=== PATIENT | male | born 1995 | race Caucasian/White ===

== ENCOUNTER → 2019-05-05 11:13 | Outpatient (CLI) | payer OTHER, SELFPAY ==
[2017-06-06 23:46] VITALS: BMI 24.1
[2019-05-05 12:16] LABS: Absolute Neutrophil Count 2.3 X10^3/uL (2.0-7.7); Basophil# 0.02 X10^3/uL; Basophil% 0.3 % (0-1); Eosinophil# 0.11 X10^3/uL; Eosinophils% 1.9 % (0-5); Hematocrit 44.8 % (40-54); Hemoglobin 15.4 g/dl (13.0-16.5); Lymphocyte % 50.3 % (19-41); Mean Corp Hgb Conc 34.4 g/gl (32-36); Mean Corpuscular Hgb 30.6 pg (27.0-32.0); Mean Corpuscular Volume 89.1 fL (80-94); Mean Platelet Vol. 9.9 fl (6.2-12.0); Monocyte# 0.41 X10^3/uL; Monocyte% 7.1 % (0-10); Neutrophil # 2.32 X10^3/uL (2.7-7.7); Neutrophil % 40.4 % (47-70); Platelet Count 288 K/mm3 (150-450); RBC Distribution Width CV 13.1 % (11.6-14.6); RBC Distribution Width SD 42.3 fl (35.1-43.9); Red Blood Count 5.03 M/mm3 (4.6-6.2); White Blood Count 5.8 K/mm3 (4.4-11.0)
[2019-05-05 12:17] LABS: POSITIVE COUNT NO; POSITIVE DIFFERENTIAL NO; POSITIVE MORPHOLOGY NO
[2019-05-05 12:47] LABS: Thyroid Stim Hormone (TSH) 1.17 uIU/mL (0.358-3.74)
[2019-05-05 13:03] LABS: Hepatitis B Surface Antigen Non-Reactive (Nonreactive)
[2019-05-05 15:00] LABS: Chlamydia Trachomatis by PCR Negative (Negative); Neisserai gonorrhoeae by PCR Negative (Negative); Probe Check PASS; Sample Adequacy Control PASS; Specimen Processing Control PASS
[2019-05-06 01:18] LABS: Rapid Plasmin Reagin (RPR) NONREACTIVE (NONREACTIVE)
[2019-05-06 07:34] LABS: HIV - WCH Non-Reactive (Nonreactive)
[2019-05-08 11:35] LABS: Hepatitis C Antibody Non-Reactive (Nonreactive)
== END ==
PROVIDERS: Family Provider Family Medicine; PCP Family Medicine; Referring Provider Family Medicine; Visit Provider Family Medicine
DX: F41.9 Anxiety disorder, unspecified (principal); Z11.3 Encounter for screening for infections with a predominantly sexual mode of transmission; D72.819 Decreased white blood cell count, unspecified
CPT/HCPCS: 36415; 84443; 85025; 86592; 86703; 86803; 87340; 87491; 87591

== ENCOUNTER → 2019-07-06 09:25 | Outpatient (CLI) | payer OTHER, SELFPAY ==
--- NOTE | 2019-07-06 09:35 | US_ITS ---
STUDY: SCROTUM ULTRASOUND REASON FOR EXAM: Male, 23 years old. Right-sided testicular pain and lump TECHNIQUE: Ultrasound evaluation of the scrotum was performed with color Doppler and static michael-scale imaging. COMPARISON: October 11, 2014 FINDINGS: RIGHT TESTICLE INTRATESTICULAR: There is a normal size of the right testicle. The right testicle measures 4.3 x 3 x 2 cm cm. There is a homogenous echotexture. There is normal arterial and normal venous vascularity. There is no demonstrated right testicular mass or cyst. EXTRATESTICULAR: The epididymis is normal in size. The epididymis head measures 0.9 x 1.3 x 0.8 cm. There is normal vascularity of the epididymis. 0.7 x 0.7 x 0.6 cm right epididymal cyst. There is no demonstrated hydrocele. There is no demonstrated varicocele. There is no demonstrated extratesticular mass or cyst. LEFT TESTICLE INTRATESTICULAR: There is a normal size of the left testicle. The left testicle measures 4.5 x 2.7 x 2.3 cm. There is a homogenous echotexture. There is normal arterial and normal venous vascularity. There is no demonstrated left testicular mass or cyst. EXTRATESTICULAR: The epididymis is normal in size. The epididymis head measures 0.9 x 1.2 x 0.9 cm. There is normal vascularity of the epididymis. There is no demonstrated epididymal cystic structure. There is no demonstrated hydrocele. There is no demonstrated varicocele. There is no demonstrated extratesticular mass or cyst. US/Testicular with Arterial Flow IMPRESSION: Normal bilateral testicles. Electronically Signed: Hubert John MD at 22:34 EDT , Service support ,
== END ==
PROVIDERS: Family Provider Family Medicine; PCP Family Medicine; Referring Provider Family Medicine; Visit Provider Family Medicine
DX: N50.819 Testicular pain, unspecified (principal)
CPT/HCPCS: 76870; 93976

== ENCOUNTER 2019-12-20 11:27 | Emergency (ER) | payer OTHER, SELFPAY ==
[2019-12-20 11:29] VITALS: BP 117/56; PULSE 67; RESP 18; TEMP 36.4; O2SAT 100; BMI 18.2
--- NOTE | 2019-12-20 12:10 | EKG12_ITS ---
Test Reason : ILLNESS Blood Pressure : / mmHG Vent. Rate : 058 BPM Atrial Rate : 058 BPM P-R Int : 140 ms QRS Dur : 098 ms QT Int : 378 ms P-R-T Axes : 044 057 045 degrees QTc Int : 371 ms Sinus bradycardia with sinus arrhythmia Otherwise normal ECG Confirmed by HODAN ARIAS ([id number]), content editor NOE OJEDA ([id number]) on 12/22/2019 3:18:43 PM Referred By: GERALDO Confirmed By:HODAN ARIAS
--- NOTE | 2019-12-20 12:10 | CT_ITS ---
STUDY: CT BRAIN WITHOUT CONTRAST REASON FOR EXAM: Male, 24 years old. UNRESPONSIVE EPISODES, SYNCOPE, HX-PTSD, SUBDURAL HEMATOMA RADIATION DOSAGE (If Supplied By Facility): CTDIvol = ( 44.99 ) mGy, DLP = ( 728.62 ) mGycm TECHNIQUE: Transaxial CT imaging of the brain was performed without administration of intravenous contrast material. Individualized dose optimization techniques were used for this CT. COMPARISON: No relevant priors. FINDINGS: Normal soft tissue structures. Normal calvarium. Normal size ventricles and extra-axial spaces for the patient''s age. Normal white matter tracts of the cerebral hemispheres. Normal basal ganglia and thalami. Normal brainstem. Normal cerebellum. There is no intracranial hemorrhage. There are no findings of an acute ischemic infarction. Focal mucosal thickening along the posterior aspect of the left maxillary sinus. CT/Brain/Head without Contrast IMPRESSION: Normal unenhanced CT scan of the brain. Electronically Signed: Omega Chavez, at 13:04 EST , Service support ,
--- NOTE | 2019-12-20 12:12 | RAD_ITS ---
STUDY: X-RAY CHEST REASON FOR EXAM: Male, 24 years old. RAPID HR, -- SYNCOPAL EPISODE TODAY AND A COUPLE IN THE PAST TECHNIQUE: PA and lateral views of the chest. COMPARISON: Comparison is made with prior examination dated October 28, 2016. FINDINGS: EKG electrodes are seen. The lungs are clear and expanded. Scattered calcified granulomas. There is no demonstrated pleural abnormality. Normal size heart. Normal mediastinum and eduar. Normal visualized pulmonary arteries. Normal visualized aortic arch and descending thoracic aorta. Normal visualized thoracic spine. Normal visualized ribs, clavicles, and shoulders. There is no demonstrated abnormality of the visualized soft tissue structures of the upper abdomen. RAD/Chest PA and Lateral IMPRESSION: Normal x-ray examination of the chest. Electronically Signed: Omega Chavez, at 13:09 EST , Service support ,
--- NOTE | 2019-12-20 12:21 | ED.VIS.GEN ---
History of Present Illness Chief Complaint: Syncope Narrative: Patient presents emergency department with unresponsive episodes. Patient states that these episodes have occurred in the past particular about 2-1/2 years ago when he was diagnosed with PTSD. He states that up until Thursday he had not had them again. He reports that he feels like he is going to go into them and he will go to his knees. He states that he believes he sees pictures and imagery but cannot recall what he seen. He does not lose control of his bowel or bladder. Sometimes he wakes with a headache and sometimes feels fatigued. He has had 2 new jobs in the past couple months. He states he is not currently seeing a counselor. He has a history of subdural hematoma after falling out of a tree when he was 11 as well as several other head injuries since then. He did not require any craniotomy for the subdural. He has never seen a neurologist for this. Past Medical History - Allergies and Home Meds Allergies/Adverse Reactions: Allergies No Known Allergies Allergy (Verified 12/20/19 11:28) Primary Care Physician: Dharmesh Vasquez MD [Primary Care Provider] - Smoking Status: Current every day smoker Review of Systems General: Denies: Chills, Fever, Sweats Eyes: Denies: Visual changes - bilaterally, Diplopia ENT: Denies: Rhinorrhea, Sore throat Cardiovascular: Denies: Chest pain, Palpitations Respiratory: Denies: Dyspnea, Cough, Dyspnea on exertion Gastrointestinal: Denies: Abdominal pain, Nausea, Vomiting, Diarrhea, Melena, Hematochezia Genitourinary: Denies: Dysuria, Hematuria, Frequency Musculoskeletal: Denies: Back pain, Extremity Pain Skin: Denies: Rash, Wounds Neurological: Reports: Headache, - - unreponsive episodes. Denies: Weakness, Numbness Psych: Reports: Anxiety Physical Exam Vital Signs/Narrative: Vital Signs Temp Pulse Resp BP Pulse Ox 12/20/19 11:29 97.5 F L 67 18 117/56 L 100 Inital Vital Signs reviewed: Yes General: Well nourished, Well developed, No Acute Distress Head: Normocephalic, Atraumatic Eyes: Perrl, EOMI ENT: Moist mucous membranes, No rhinorrhea Neck: Supple, Nontender Cardiovascular: Regular rate, Regular rhythm, No murmurs Respiratory: No distress, CTA bilaterally, Chest nontender Abdomen: Soft, Nontender, Nondistended, Normal bowel sounds Back: Nontender, Normal Inspection Extremities: Nontender, No edema Skin: Normal color, No rash Neurological: Alert, Oriented x3, Cranial nerves II-XII grossly intact, Normal Strength, Normal Sensation Psychological: Normal affect, Normal Mood Diagnostic/Tx/Re-eval - Medical Decision Making Basic labs were normal. EKG sinus bradycardia. Chest x-ray normal sternal silhouette. CT the brain negative. Has had no events on the monitor. This could be absence seizure by think is most likely to be psychological in nature. However I would recommend a follow-up with neurology as well as psychiatry. ED Disposition - Plan for ED Patient: Disposition: Home or Assisted Living Diagnosis: Unresponsive episode Referrals: Dharmesh Vasquez MD [Primary Care Provider] - As soon as possible Counseling,Center [GROUP OF PHYSICIANS] - As soon as possible Additional Instructions: Recommend you follow-up with both the counseling center your PCP and neurology. [facility] ([place]you can call for an appointment [phone]
[2019-12-20 13:00] LABS: Absolute Lymphocyte Count 1.47 X10^3/uL (0.83-4.51); Absolute Neutrophil Count 3.9 X10^3/uL (2.0-7.7); Basophil# 0.03 X10^3/uL; Basophil% 0.5 % (0-1); Eosinophil# 0.09 X10^3/uL; Eosinophils% 1.6 % (0-5); Hematocrit 42.7 % (40-54); Hemoglobin 14.8 g/dL (13.0-16.5); Lymphocyte # 1.47 X10^3/ul (4.0); Lymphocyte % 25.6 % (19-41); Mean Corp Hgb Conc 34.7 g/dL (32-36); Mean Corpuscular Hgb 31.7 pg (27.0-32.0); Mean Corpuscular Volume 91.4 fL (80-94); Mean Platelet Vol. 10.1 fl (6.2-12.0); Monocyte# 0.26 X10^3/uL; Monocyte% 4.5 % (0-10); NRBC Flagged by Analyzer 0 % (0-5); Neutrophil # 3.88 X10^3/uL (2.7-7.7); Neutrophil % 67.6 % (47-70); Platelet Count 271 K/mm3 (150-450); RBC Distribution Width SD 39.9 fl (35.1-43.9); Red Blood Count 4.67 M/mm3 (4.6-6.2); White Blood Count 5.7 K/mm3 (4.4-11.0)
[2019-12-20 13:18] LABS: ALB/GLOB Ratio 1.5 RATIO (0.9-2.4); AST(SGOT) 19 U/L (15-37); Alanine Aminotransfer ALT/SGPT 25 U/L (16-61); Albumin, Serum 4.2 g/dL (3.2-5.0); Alkaline Phosphatase 88 U/L (45-117); Anion Gap 4 (5-15); BUN 8 mg/dL (7-18); BUN/Creat Ratio 11.3 RATIO (10-20); Calcium,Total 9.4 mg/dL (8.5-10.1); Chloride 108 mmol/L (98-107); Creatinine, Serum 0.71 mg/dL (0.70-1.30); EST Glomerular Filtration Rate 148 mL/min (>60); Est Glom Filt Rate - Afr Amer 179 mL/min (>60); Estimated Creatinine Clearance 125.64 ml/min; Globulin 2.8 g/dL (2.2-4.2); Glucose 94 mg/dL (74-106); Potassium 3.8 mmol/L (3.5-5.1); Sodium Level 141 mmol/L (136-145)
[2019-12-20 13:29] VITALS: BP 98/49; PULSE 56; RESP 15; O2SAT 98
[2019-12-20 13:45] LABS: Mucous, Urine 0 SEEN /hpf (<or=2+); Red Blood Cells-Urine 0 SEEN /hpf (0-5); Squamous Epithelial Cells - UA 0 SEEN /hpf (0-5); White Blood Cells 0 SEEN /hpf (0-5)
[2019-12-20 13:50] LABS: Color, Urine Yellow (Yellow); Glucose, Dipstick Normal (Normal); Ketone-Dipstick Negative (Negative); Leukocyte Esterase-Dipstick Negative /ul (Negative); Nitrite-Dipstick Negative (Negative); Occult Blood-Urine Negative /ul (Negative); Protein-Dipstick Negative (Negative); Urine Bilirubin Dipstick Negative (Negative); Urine Clarity Cloudy (Clear); Urine Urobilinogen Normal (Normal)
[2019-12-20 14:02] LABS: Bacteria 1+ /hpf (None Seen)
[2019-12-20 14:03] LABS: Amorphous Sediment 4+
[2019-12-20 14:19] LABS: Amphetamine Urine VISTA NEGATIVE (<1000 ng/mL); Barbiturate Urine VISTA NEGATIVE (< 200 ng/mL); Benzodiazepine Urine VISTA NEGATIVE (< 200 ng/mL); Cocaine Urine VISTA NEGATIVE (< 300 ng/mL); Ecstacy Urine VISTA NEGATIVE (< 500 ng/mL); Methadone Urine VISTA NEGATIVE (< 300 ng/mL); PCP Urine VISTA NEGATIVE (< 25 ng/mL); THC Urine VISTA POSITIVE (< 50 ng/mL); Vista UDS pH Range 8
[2019-12-20 14:40] VITALS: BP 91/57; PULSE 57; RESP 16; O2SAT 98
== END 2019-12-20 14:41 | disposition home or self-care (01) ==
PROVIDERS: Emergency Provider Emergency Medicine; PCP Family Medicine
DX: R55 Syncope and collapse (principal); F17.200 Nicotine dependence, unspecified, uncomplicated; F43.10 Post-traumatic stress disorder, unspecified; Z79.899 Other long term (current) drug therapy
CPT/HCPCS: 70450; 71046; 80053; 80307; 81001; 85025; 93005; 99283; A4216

== ENCOUNTER → 2020-01-06 | Outpatient (CLI) | payer OTHER, SELFPAY ==
[2019-12-20 11:29] VITALS: BMI 18.2
== END | disposition home or self-care (01) ==
LOC: PSN 07:01
PROVIDERS: PCP Family Medicine; Referring Provider Family Medicine; Visit Provider Family Medicine
DX: R41.89 Other symptoms and signs involving cognitive functions and awareness (principal)
CPT/HCPCS: 95819

== ENCOUNTER 2024-01-26 17:42 | Inpatient (IN) | payer SELFPAY ==
[2024-01-26 17:43] VITALS: BP 128/86; PULSE 113; RESP 20; TEMP 36.2; O2SAT 97; BMI 25.2
--- NOTE | 2024-01-26 19:18 | CT_ITS ---
STUDY: CT ABDOMEN AND PELVIS WITHOUT CONTRAST REASON FOR EXAM: Male, 28 years old. Right lower quadrant abdominal pain RADIATION DOSAGE (If Supplied By Facility): CTDIvol = ( 8.42 ) mGy, DLP = ( 361.81 ) mGycm TECHNIQUE: Transaxial images were obtained from the dome of the diaphragm to the symphysis pubis without oral contrast, and without intravenous contrast. Sagittal and coronal images were reconstructed. Individualized dose optimization techniques were used for this CT. COMPARISON: August 04, 2013 FINDINGS: The visualized lung bases are unremarkable. The visualized portions of the heart are within normal limits. Normal liver. Normal gallbladder and extrahepatic biliary system. Normal spleen. Normal pancreas. Normal bilateral adrenal glands. Normal right kidney. Normal left kidney. Normal visualized stomach. There is thickening of the wall of the terminal ileum which may be consistent with nonspecific ileitis. Cannot exclude mild changes of Crohn''s disease.. Normal colon. The appendix is visualized and appears normal. Normal abdominal aorta. Normal inferior vena cava. Normal retroperitoneum. Normal urinary bladder. Normal abdominal wall. Normal osseous structures. CT/Abdomen/Pelvis WITH Contrast IMPRESSION: Findings which may be consistent with nonspecific ileitis. No evidence for small bowel obstruction or acute appendicitis. Electronically Signed: Jameson Hager MD at 22:03 EDT ,
[2024-01-26] MEDS: Morphine 4 MG/ML Syringe IV (19:25)
[2024-01-26] MEDS: Ondansetron 4 MG/2 ML Vial IV (19:25)
[2024-01-26] MEDS: 0.9% Normal Saline (1000mL) 1,000 ML 1000 ML IV (19:25)
[2024-01-26 19:39] LABS: Absolute Neutrophil Count 15.7 X10^3/uL (2.0-7.7); Basophil# 0.05 X10^3/uL; Basophil% 0.3 % (0-1); Hematocrit 48.6 % (40-54); Hemoglobin 16.5 g/dL (13.0-16.5); Lymphocyte % 5.2 % (19-41); Mean Corpuscular Hgb 30.7 pg (27.0-32.0); Mean Corpuscular Volume 90.5 fL (80-94); Mean Platelet Vol. 10.5 fl (6.2-12.0); Monocyte% 3.5 % (0-10); NRBC Flagged by Analyzer 0 % (0-5); Neutrophil # 15.68 X10^3/uL (2.7-7.7); Neutrophil % 90.1 % (47-70); Platelet Count 338 K/mm3 (150-450); RBC Distribution Width CV 12.2 % (11.6-14.6); Red Blood Count 5.37 M/mm3 (4.6-6.2); White Blood Count 17.4 K/mm3 (4.4-11.0)
[2024-01-26 19:42] VITALS: BP 117/64; PULSE 104; RESP 16; O2SAT 100
[2024-01-26 20:00] LABS: Anion Gap 10 (5-15); BUN 13 mg/dL (7-18); BUN/Creat Ratio 12.3 RATIO (10-20); Chloride 104 mmol/L (98-107); Creatinine, Serum 1.06 mg/dL (0.70-1.30); EST Glomerular Filtration Rate 90 mL/min (>60); Est Glom Filt Rate - Afr Amer 109 mL/min (>60); Estimated Creatinine Clearance 91.86 ml/min; Glucose 102 mg/dL (74-106); Sodium Level 138 mmol/L (136-145)
--- NOTE | 2024-01-26 20:28 | ED.VIS.GI ---
HPI HPI - GI History of Present Illness Chief Complaint: Abd Pain Detail of Chief Complaint: Abdominal pain with nausea and vomiting Informant: patient Abdominal Pain/Flank Pain Onset: Yesterday Context: Sudden Onset Timing: Continuous and Waxes and wanes Quality: Aching and Cramping Location: RUQ and RLQ Current Severity: Moderate Maximum Severity: Severe Worsened by: Car ride and Movement Relieved by: Nothing Nausea/Vomiting/Emesis GI Symptom: Positive for Nausea and Vomiting (Between 5-10 times) Onset: Today Quality: Negative for Nonbilious, Blood streaks, Coffee ground or Hematemesis Severity: Moderate Diarrhea/Melena/Hematochezia GI Symptom: Negative for Diarrhea, Melena or Hematochezia Associated Symptoms Associated Symptoms: Negative for Dysuria, Frequency, Hematuria or Urgency Narrative Narrative: Patient is a 28-year-old male who presents with abdominal pain that was initially upper quadrant now lower quadrant on the right side with nausea and vomiting. He denies fever or chills. He denies cardiac respiratory symptoms. He denies dysuria, frequency, urgency or hematuria. He has no history of renal or ureteral calculi. Movement causes him increased pain. Walking causes him pain. There was a delay in ordering his workup because of acuity in the department that required my immediate attention and bedside care. Prior similar symptoms: No Recent Illness/Hospitalization: No PFSH PFSH Medical History PTSD (post-traumatic stress disorder) Seizures Home Medications vortioxetine 20 mg tablet 20 mg PO DAILY 12/20/19 [History Last Taken Unknown] doxycycline hyclate 100 mg capsule 200 mg PO BID 01/26/24 [History Last Taken Unknown] Allergy/AdvReac Type Severity Reaction Status Date / Time No Known Allergies Allergy Verified 01/26/24 17:45 Social History (Updated 01/26/24 @ 20:[address] Branden Esparza MD) household members: significant other Smoking Status: Former smoker ROS ROS ED Constitutional Constitutional ED: Reports fever(s), subjective and sweats; Denies chills ENT ENT ED: Denies ear pain, rhinorrhea or sore throat Cardiovascular Cardiovascular: Denies chest pain, orthopnea, palpitations, paroxysmal nocturnal dyspnea or racing heartbeat Respiratory/Chest Respiratory/Chest: Denies cough, dyspnea, dyspnea on exertion, orthopnea or paroxysmal nocturnal dyspnea Gastrointestinal Gastrointestinal: Reports abdominal pain, nausea and vomiting; Denies constipation, diarrhea or melena Genitourinary Genitourinary ED: Denies dysuria, hematuria or urinary frequency Musculoskeletal Musculoskeletal: Denies arthralgias, back pain or neck pain Integumentary Denies rash Neurologic Neurologic: Denies headache(s), paresthesias or weakness Psychiatric Psychiatric: Reports anxiety Endocrine Endocrinology: Denies polydipsia, polyphagia or polyuria Hematologic/Lymphatic Hematologic/Lymphatic: Denies easy bleeding or easy bruising EXAM Physical Exam Const Vital Signs: 01/26/24 17:43 01/26/24 19:42 01/26/24 20:59 Temperature 97.2 F L Temperature Source Temporal Pulse Rate 113 H 104 H 109 H Respiratory Rate 20 H 16 20 H Blood Pressure 128/86 H 117/64 136/80 H Blood Pressure Mean 100 81 98 Pulse Ox 97 100 100 Oxygen Delivery Method Room Air Room Air Room Air Positive well nourished and well developed; Negative for obese Constitutional Narrative: Patient appears uncomfortable and ill in appearance. General Appearance ED: well developed; Negative for pallor Nutritional Appearance: Negative for obese HEENT Reports TM's clear and dry mucous membranes normocephalic and atraumatic Tympanic Membrane ED: Yes TM's clear Mouth ED: Yes dry mucous membranes Mouth: dry mucous membranes Eyes PERRL and EOMs intact bilaterally General Eye ED: Negative for pale conjunctiva or scleral icterus Neck no lymphadenopathy, supple and no JVD Resp normal respiratory effort and clear to auscultation bilaterally Cardio regular rhythm, S1 normal heart sound, S2 normal heart sound and no murmurs Rate: tachycardic GI no masses; Negative for non-tender or non-distended GI Narrative: There is tympany to percussion upper quadrants. Inspection: abdominal distention Auscultation: hypoactive bowel sounds Palpation: tender RLQ (There is mild tenderness in the right upper quadrant predominantly right lower quadrant.), McBurney's point, periumbilical, suprapubic, Costa's sign, Obturator sign and Psoas sign Back/Spine no CVA tenderness Thoracic Spine / Upper Back: Negative for thoracic spinal tenderness Lumbar Spine / Lower Back: Negative for lumbar spinal tenderness Extremity full ROM Neuro CN's II-XII intact bilaterally and moves all extremities Sensorium / Orientation: alert Psych mental status grossly normal and thought process normal Skin no wounds General Skin Exam: Negative for jaundice or pallor Lesions: no lesions Rashes: no rashes MDM MDM MDM Narrative Medical decision making narrative: Differential diagnosis could represent acute cholecystitis, acute appendicitis, atypical presentation for acute ureterolithiasis with obstruction. Patient was treated with Zofran and morphine for his nausea vomiting and pain. Blood work was ordered. If liver enzymes are elevated will obtain ultrasound if liver enzymes are normal will perform CAT scan in light of differential. History & Record Review Additional record(s) reviewed:: Prior outpatient record (Patient had several visits for psychiatric reasons. Is also been seen for minor wound and upper respiratory infection.), Prior ED visit and Prior labs Lab Data Attestation: I reviewed the patient's lab results. Lab results narrative: White count is elevated 17.4 thousand with shift. There is no bandemia. H&H is normal. Basic metabolic panel is normal. Labs: Laboratory Results - last 24 hr 01/26/24 18:40 WBC 17.4 H RBC 5.37 Hgb 16.5 Hct 48.6 MCV 90.5 MCH 30.7 MCHC 34.0 RDW Std Deviation 40.0 RDW Coeff of Jacinto 12.2 Plt Count 338 MPV 10.5 Immature Gran % (Auto) 0.900 Neut % (Auto) 90.1 H Lymph % (Auto) 5.2 L [place] % (Auto) 3.5 Eos % (Auto) 0.0 Baso % (Auto) 0.3 Absolute Neuts (auto) 15.7 H Absolute Lymphs (auto) 0.90 Nucleated RBC % 0 Sodium 138 Potassium 4.0 Chloride 104 Carbon Dioxide 24.0 Anion Gap 10 BUN 13 Creatinine 1.06 Estim Creat Clear Calc 91.86 Est GFR (MDRD) Af Amer 109 Est GFR (MDRD) Non-Af 90 BUN/Creatinine Ratio 12.3 Glucose 102 Calcium 10.0 Total Bilirubin 0.50 Direct Bilirubin 0.12 AST 35 ALT 36 Alkaline Phosphatase 93 Total Protein 8.3 H Albumin 4.9 Globulin 3.4 Lipase 15 Radiography Diagnostic Testing: Clinical Impression(s) from Imaging Studies Abdomen/Pelvis CT 01/26/24 19:18 IMPRESSION: Findings which may be consistent with nonspecific ileitis. No evidence for small bowel obstruction or acute appendicitis. Electronically Signed: Jameson Hager MD at 22:03 EDT Reading Location ID and State: [address] [place] [address] Tel , Service support , Management Discussion w/another healthcare provider: Hospitalist (Spoke Dr. Gregg. Full admission [facility]) and [employer] Supervisor (Spoke with Dr. Childress. He was made aware of the patient. In light of white count presentation and CAT scan findings recommended ciprofloxacin and metronidazole.) Discharge Plan Triage Chief Complaint: Abd Pain ED Provider: Can Esparzao Dx/Rx/DC Orders Clinical Impression: Acute dehydration, Sinus tachycardia seen on personnel monitor, Ileitis, Nausea & vomiting, Acute generalized abdominal pain Prescriptions: No Action vortioxetine 20 MG tablet 20 mg PO DAILY doxycycline hyclate 100 mg capsule 200 mg PO BID Primary Care Provider: Dharmesh Vasquez Referrals: Dharmesh Vasquez MD [Primary Care Provider] - Disposition Disposition: Acute Care Hospital [facility]
[2024-01-26 20:59] VITALS: BP 136/80; PULSE 109; RESP 20; O2SAT 100
[2024-01-26 21:01] LABS: AST(SGOT) 35 U/L (15-37); Alanine Aminotransfer ALT/SGPT 36 U/L (16-61); Albumin, Serum 4.9 g/dL (3.2-5.0); Alkaline Phosphatase 93 U/L (45-117); Bilirubin, Direct 0.12 mg/dL (0.00-0.30); Globulin 3.4 g/dL (2.2-4.2); Protein, Total 8.3 g/dL (6.4-8.2)
[2024-01-26 21:03] LABS: Lipase 15 U/L (13-75)
[2024-01-26] MEDS: HYDROmorphone 0.5 MG/0.5 ML SYRINGE IV (21:06)
[2024-01-26 22:00] VITALS: BP 124/69; PULSE 108; RESP 16; O2SAT 100
--- NOTE | 2024-01-26 22:53 | PCM.HP.STD ---
HPI - General General Date of Admission: 01/26/24 Date of Service: 01/26/24 Chief Complaint: Abdominal pain, N/V HPI Narrative The patient is a 28 y/o M w/ PMHx: Former nicotine vaping user, Seizure disorder, Chronic daily cannabis usage, Anxiety and possible Depression/PTSD, reported diagnosis of Lyme disease on chronic doxycycline BID regimen for the last 2 years who presents to the [facility] ED on 01/26/24 with history of onset over the last 24 hours significant abdominal discomfort with associated nausea and occasional bouts of emesis noted to be continuous and intermittently worsening reported as sharp stabbing as well as dull aching and cramping rated 10 out of 10 in severity at its worst, currently down to 6-7 out of 10 in severity reported initially upon presentation to be worse in the right upper and lower quadrant however upon ED evaluation per hospitalist noted worse left lower quadrant more pronounced with any movement and activity prompting eventual ED evaluation. He notes that the pain is specifically worse when he has more active bowel sounds that he can audibly hear. He denies any recent fevers or chills or ill contacts. He notes no recent flatus but sensation that he needs to. He notes last bowel movement was potentially the day prior and was normal. Workup in the ED included T97.2, heart rate initially 113, BP 120/86, respiratory rate 20, 97% on room air, CBC with WBC 17.4, hemoglobin 16.5, platelet 338 with left shift, CMP unremarkable, lipase 15, CT abdomen and pelvis with findings consistent with a nonspecific ileitis with no evidence of any bowel obstruction or acute appendicitis. ED discussed case with gastroenterology Dr. Childress and they note that he requested continuation of IV ciprofloxacin and Flagyl with planned evaluation. [facility] Medical History (Updated 01/27/24 @ 03:[address] Hortencia Gregg MD) Anxiety and depression Cannabis use disorder History of nicotine vaping PTSD (post-traumatic stress disorder) Seizures Home Medications vortioxetine 20 mg tablet 20 mg PO DAILY depression 12/20/19 [History Last Taken Unknown] doxycycline hyclate 100 mg capsule 200 mg PO BID atb 01/26/24 [History Last Taken Unknown] lamotrigine 150 mg tablet 300 mg PO DAILY Seizure disorder 01/27/24 [History Last Taken Unknown] Allergy/AdvReac Type Severity Reaction Status Date / Time No Known Allergies Allergy Verified 01/26/24 17:45 Family History (Updated 01/27/24 @ 03:[address] Hortencia Gregg MD) Mother Lyme disease Father No problems noted. Surgical History (Updated 01/27/24 @ 03:[address] Hortencia Gregg MD) H/O elbow surgery Social History (Updated 01/27/24 @ 03:[address] Hortencia Gregg MD) household members: significant other Smoking Status: Former smoker how long ago did patient quit smoking: Former nicotine vaping, quit 11/2022, used ~ 10 yrs prior to quitting. alcohol intake: never substance use type: marijuana ROS ROS Narrative Admission Review of Systems: CONSTITUTIONAL: No weight loss, fever, chills, + weakness or fatigue. HEENT: Eyes: No visual loss, blurred vision, double vision or yellow sclerae. Ears, Nose, Throat: No hearing loss, sneezing, congestion, runny nose or sore throat. SKIN: No rash or itching, lesions, wounds. CARDIOVASCULAR: No chest pain, chest pressure or chest discomfort, palpitations, edema, orthopnea, syncopal events. RESPIRATORY: No shortness of breath, cough or sputum, wheezing, hemoptysis. GASTROINTESTINAL: + anorexia, nausea, vomiting, abdominal pain. No constipation, diarrhea, melena, BRBPR. GENITOURINARY: No dysuria, frequency, urgency or retention. NEUROLOGICAL: + Seizure disorder. No headache, dizziness, syncope, paralysis, ataxia, numbness or tingling in the extremities, focal weakness, change in bowel or bladder control. MUSCULOSKELETAL: No muscle, back pain, joint pain or stiffness. HEMATOLOGIC: No anemia, bleeding or bruising. LYMPHATICS: No enlarged nodes. No history of splenectomy. PSYCHIATRIC: + Hx of depression/anxiety/PTSD. ENDOCRINOLOGIC: No reports of sweating, cold or heat intolerance. No polyuria or polydipsia. ALLERGIES: No history of asthma, hives, eczema or rhinitis. Vital Signs Vital Signs Vital Signs: 01/26/24 17:43 01/26/24 19:42 01/26/24 20:59 Temperature 97.2 F L Temperature Source Temporal Pulse Rate 113 H 104 H 109 H Respiratory Rate 20 H 16 20 H Blood Pressure 128/86 H 117/64 136/80 H Blood Pressure Mean 100 81 98 Pulse Ox 97 100 100 Oxygen Delivery Method Room Air Room Air Room Air Weight Weight: 151 lb 7.321 oz Body Mass Index (BMI) 25.2 Physical Exam Narrative Physical Examination: General: Awake, alert, oriented x 3 and cooperative, seated upright in the ED bed, anxious, stressed, tearful. Skin: Normal color, normal turgor, no icterus, no cyanosis. HEENT: AT/NC, EOMI, PERRLA, moderately dry MM, no carotid bruits or JVD noted. Lungs: CTA bilaterally, moderate effort, mild decrease BL bases, no rales, ronchi or wheezing. Heart: Mildly tachycardic with regular rhythm; no gallop, rub audible. Abdomen: Soft, tender to palpation primarily in the left lower quadrant currently, some voluntary guarding noted, no marked distention, hyperactive bowel sounds throughout, no appreciated HSM. Extremities: No cyanosis, clubbing, or edema. Neurological: Patient awake, alert, oriented x 3, cognitive function intact; pupils equally reactive to light and accommodation, cranial nerves II-XII grossly normal, moving all 4 extremities, no focal deficits, strength mildly to moderately globally decreased secondary to acute presentation complaints. Psychiatric: Affect appears anxious, uncomfortable, tearful, from discussion suspect underlying anxiety and depression as well as PTSD. Results Lab / Micro Data 01/26/24 18:40 01/26/24 18:40 Labs: Laboratory Results - last 24 hr 01/26/24 18:40: WBC 17.4 H, RBC 5.37, Hgb 16.5, Hct 48.6, MCV 90.5, MCH 30.7, MCHC 34.0, RDW Std Deviation 40.0, RDW Coeff of Jacinto 12.2, Plt Count 338, MPV 10.5, Immature Gran % (Auto) 0.900, Neut % (Auto) 90.1 H, Lymph % (Auto) 5.2 L, [place] % (Auto) 3.5, Eos % (Auto) 0.0, Baso % (Auto) 0.3, Absolute Neuts (auto) 15.7 H, Absolute Lymphs (auto) 0.90, Nucleated RBC % 0, Sodium 138, Potassium 4.0, Chloride 104, Carbon Dioxide 24.0, Anion Gap 10, BUN 13, Creatinine 1.06, Estim Creat Clear Calc 91.86, Est GFR (MDRD) Af Amer 109, Est GFR (MDRD) Non-Af 90, BUN/Creatinine Ratio 12.3, Glucose 102, Calcium 10.0, Total Bilirubin 0.50, Direct Bilirubin 0.12, AST 35, ALT 36, Alkaline Phosphatase 93, Total Protein 8.3 H, Albumin 4.9, Globulin 3.4, Lipase 15 Imaging Radiology Impression Abdomen/Pelvis CT 01/26/24 19:18 IMPRESSION: Findings which may be consistent with nonspecific ileitis. No evidence for small bowel obstruction or acute appendicitis. Electronically Signed: Jameson Hager MD at 22:03 EDT Reading Location ID and State: [facility] / [place] Tel , Service support , Assessment & Plan Assessment/Plan (1) Ileitis: PLAN: Plan The patient is a 28 y/o M w/ PMHx: Former nicotine vaping user, Seizure disorder, Chronic daily cannabis usage, Anxiety and possible Depression/PTSD, reported diagnosis of Lyme disease on chronic doxycycline BID regimen for the last 2 years who presents to the [facility] ED on 01/26/24 with history of onset over the last 24 hours significant abdominal discomfort with associated nausea and occasional bouts of emesis noted to be continuous and intermittently. #1. Acute ileitis with associated abdominal pain, nausea and emesis: Will admit to MS, maintain on aggressive hydration, monitor I&Os, will allow clears, treat with cipro and flagyl per reported GI request, maintain on famotidint, anti-emetics, pain regimen PRN. Consider diet advancement to clears in AM if clinically improved. Will continue Gastroenterology consultation initiated per the ED. #2. Patient reported history of Lyme disease: Patient reports being diagnosed remotely at least 2 years prior with Lyme disease and has been on doxycycline 200 mg twice daily for at least 2 years, discussed at length and given patient's significant anxiety after lengthy discussion we will consult infectious disease to assure appropriate ongoing follow-up and appropriate care. #3. Seizure disorder: Will continue patient home lamotrigine regimen but from description would benefit from possible follow-up outpatient with neurology. #4. Anxiety and suspected underlying depression complicated by PTSD: We will continue patient home vortioxetine regimen but from evaluation patient would benefit from counseling and consideration of regimen adjustments as needed. #5. Chronic daily cannabis usage: Patient smokes and uses cannabis oils, certainly could be contributing to nausea and emesis but he does have ileitis on CT scan. #6. Former vaping nicotine tobacco use: Encourage continued cessation, quit 11/2022 purportedly but had used for at least 10 years per his report. #7. DVT prophylaxis: Low risk. Charges/Coding Visit Charges Inpatient E&M: 60708 Init Hosp L2
[2024-01-26 23:17] LABS: CRP < 2.90 mg/L (0.0-3.0)
[2024-01-26 23:26] LABS: Erythrocyte Sedimentation Rate 1 mm/hr (0-20)
[2024-01-26 23:56] VITALS: BMI 24.5
[2024-01-26 23:57] VITALS: BP 129/83; PULSE 103; RESP 16; TEMP 37.7; O2SAT 100
[2024-01-27 00:01] VITALS: BP 110/73; PULSE 99; RESP 16; TEMP 37.3; O2SAT 99
[2024-01-27] MEDS: proCHLORPERazine 10 MG/2 ML Vial 5 MG IV (01:02)
[2024-01-27] MEDS: Acetaminophen 325 MG Tablet 650 MG PO ×2 (01:02→11:25)
[2024-01-27] MEDS: 0.9% Normal Saline (1000mL) 1,000 ML 125 ML IV (01:50)
[2024-01-27] MEDS: metroNIDAZOLE 500 MG/100 ML BAG 100 MG IV ×3 (01:51→13:49)
[2024-01-27 02:11] LABS: Procalcitonin 0.13 ng/mL (0.00-0.09)
[2024-01-27] MEDS: Ciprofloxacin 400 MG/200 ML BAG 200 MG IV ×2 (02:59→09:29)
[2024-01-27 03:19] VITALS: BMI 24.3
[2024-01-27 06:12] VITALS: BP 110/62; PULSE 85; RESP 16; TEMP 36.6; O2SAT 100
[2024-01-27 07:04] LABS: Absolute Lymphocyte Count 2.16 X10^3/uL (0.83-4.51); Absolute Neutrophil Count 10.6 X10^3/uL (2.0-7.7); Basophil# 0.04 X10^3/uL; Basophil% 0.3 % (0-1); Eosinophil# 0.01 X10^3/uL; Eosinophils% 0.1 % (0-5); Hematocrit 42.5 % (40-54); Hemoglobin 14.5 g/dL (13.0-16.5); Lymphocyte # 2.16 X10^3/ul (0.83-4.51); Lymphocyte % 15.3 % (19-41); Mean Corp Hgb Conc 34.1 g/dL (32-36); Mean Corpuscular Hgb 30.9 pg (27.0-32.0); Mean Corpuscular Volume 90.4 fL (80-94); Mean Platelet Vol. 10.2 fl (6.2-12.0); Monocyte# 1.21 X10^3/uL; Monocyte% 8.6 % (0-10); NRBC Flagged by Analyzer 0 % (0-5); Neutrophil # 10.64 X10^3/uL (2.7-7.7); Neutrophil % 75.2 % (47-70); Platelet Count 300 K/mm3 (150-450); RBC Distribution Width SD 40.1 fl (35.1-43.9); White Blood Count 14.1 K/mm3 (4.4-11.0)
[2024-01-27 07:32] VITALS: O2SAT 99
[2024-01-27 08:14] VITALS: BP 107/59; PULSE 89; RESP 16; TEMP 36.8; O2SAT 97
[2024-01-27 08:44] LABS: ALB/GLOB Ratio 1.4 RATIO (0.9-2.4); AST(SGOT) 35 U/L (15-37); Alanine Aminotransfer ALT/SGPT 31 U/L (16-61); Albumin, Serum 4.1 g/dL (3.2-5.0); Alkaline Phosphatase 79 U/L (45-117); Anion Gap 10 (5-15); BUN 10 mg/dL (7-18); BUN/Creat Ratio 11.4 RATIO (10-20); Calcium,Total 9.1 mg/dL (8.5-10.1); Chloride 104 mmol/L (98-107); Creatinine, Serum 0.87 mg/dL (0.70-1.30); EST Glomerular Filtration Rate 112 mL/min (>60); Est Glom Filt Rate - Afr Amer 136 mL/min (>60); Estimated Creatinine Clearance 116.11 ml/min; Glucose 91 mg/dL (74-106); Potassium 3.5 mmol/L (3.5-5.1); Protein, Total 7.1 g/dL (6.4-8.2); Sodium Level 136 mmol/L (136-145)
[2024-01-27] MEDS: Famotidine 20 MG Tablet PO (09:29)
[2024-01-27] MEDS: lamoTRIgine 150 MG Tablet 300 MG PO (09:29)
--- NOTE | 2024-01-27 10:00 | CASEMGMT ---
Addendum entered by Arianna Castaneda 01/27/24 15:36: TC to [facility], spoke with Gael, cost of pt meds is $23.12. Original Note: ZORAIDA CONNOLLY Assessment: Face to Face with pt for initial transition planning/care coordination assessment. ZORAIDA CONNOLLY introduced self and role at [facility], pt voices understanding and consents to assessment. Pt is A&O x4 and answers all questions appropriately at this time. Pt sitting up in bed in no distress. Care providers, pharmacy, and demographics verified/updated. Admitting Dx: ileitis PCP:Norma Hart CNP at [facility] Specialists:Denies Preferred Pharmacy:[facility] [place] Insurance: Self Pay Prescription Benefit: no LNOK: Eyad Harrington, grandfather Living Arrangements: Pt lives alone in a single story home with 2 steps to enter. Pt reports he is I in ADL's and denies concerns at home. Transportation: Pt drives self and denies concerns with transportation. DME:Denies HHC/SNF: Denies hx of Pt states no concerns with going home at time of dc. Pt states no further concerns/needs. CM to follow. Advised pt to ask CM if any further question/concerns/needs arise, voices understanding. Pt Goal: Home Plan: Home, follow for rx cost Darian CONWAY CM
--- NOTE | 2024-01-27 12:48 | PCM.CONS.GEN ---
Assessment & Plan Assessment/Plan (1) Ileitis: PLAN: On cipro/flagyl, feeling better, plan on short course po abx at discharge. For Lyme disease, no role for 2 years of antibiotic therapy, recommend he stop. Will follow as needed, thank you, d/w primary team. HPI Consult Data Date of Consult: 01/27/24 HPI Narrative Reason for Consultation: lyme HPI Narrative: ARABELLA ZENDEJAS, is a 28 M who presented 01/25 with two day history of L sided severe abd pain with associated n/v. Pain was constant. Reports increased amount of what feels like absence seizures. On po doxy for 2 years for Lyme disease. Has not seen ID. Admitted on cipro/flagyl, feeling better. Has had tick bites in the past, reports bullseye rash as a child. Full ROS performed and neg except as noted above [facility] Medical History Anxiety and depression Cannabis use disorder History of nicotine vaping PTSD (post-traumatic stress disorder) Seizures Home Medications vortioxetine 20 mg tablet 20 mg PO DAILY depression 12/20/19 [History Last Taken Unknown] doxycycline hyclate 100 mg capsule 200 mg PO BID atb 01/26/24 [History Last Taken Unknown] lamotrigine 150 mg tablet 300 mg PO DAILY Seizure disorder 01/27/24 [History Last Taken Unknown] Allergy/AdvReac Type Severity Reaction Status Date / Time No Known Allergies Allergy Verified 01/26/24 17:45 Family History (Updated 01/27/24 @ 03:[address] Hortencia Gregg MD) Mother Lyme disease Father No problems noted. Surgical History (Updated 01/27/24 @ 03:[address] Hortencia Gregg MD) H/O elbow surgery Social History (Updated 01/27/24 @ 03:[address] Hortencia Gregg MD) household members: significant other Smoking Status: Former smoker how long ago did patient quit smoking: Former nicotine vaping, quit 11/2022, used ~ 10 yrs prior to quitting. alcohol intake: never substance use type: marijuana Physical Exam Const alert, oriented x3 and no apparent distress General Appearance: cooperative HEENT normocephalic and head/scalp atraumatic Eyes PERRL and EOMs intact bilaterally Neck supple and No nodes Resp normal air movement and clear to auscultation bilaterally Cardio regular rate and regular rhythm Heart Sounds: murmur GI soft to palpation, non-tender and non-distended Extremity General Extremity: Negative for edema Skin no rashes or lesions noted Lab / Micro Data Attestation: I reviewed the patient's lab results. 01/27/24 06:17 01/27/24 06:17 Labs: Laboratory Results - last 24 hr 01/26/24 18:40: WBC 17.4 H, RBC 5.37, Hgb 16.5, Hct 48.6, MCV 90.5, MCH 30.7, MCHC 34.0, RDW Std Deviation 40.0, RDW Coeff of Jacinto 12.2, Plt Count 338, MPV 10.5, Immature Gran % (Auto) 0.900, Neut % (Auto) 90.1 H, Lymph % (Auto) 5.2 L, [place] % (Auto) 3.5, Eos % (Auto) 0.0, Baso % (Auto) 0.3, Absolute Neuts (auto) 15.7 H, Absolute Lymphs (auto) 0.90, Nucleated RBC % 0, ESR 1, Sodium 138, Potassium 4.0, Chloride 104, Carbon Dioxide 24.0, Anion Gap 10, BUN 13, Creatinine 1.06, Estim Creat Clear Calc 91.86, Est GFR (MDRD) Af Amer 109, Est GFR (MDRD) Non-Af 90, BUN/Creatinine Ratio 12.3, Glucose 102, Calcium 10.0, Total Bilirubin 0.50, Direct Bilirubin 0.12, AST 35, ALT 36, Alkaline Phosphatase 93, C-React Prot Ext Range < 2.90, Total Protein 8.3 H, Albumin 4.9, Globulin 3.4, Lipase 15 01/27/24 00:53: Procalcitonin 0.13 H 01/27/24 06:17: WBC 14.1 H, RBC 4.70, Hgb 14.5, Hct 42.5, MCV 90.4, MCH 30.9, MCHC 34.1, RDW Std Deviation 40.1, RDW Coeff of Jacinto 12.0, Plt Count 300, MPV 10.2, Immature Gran % (Auto) 0.500, Neut % (Auto) 75.2 H, Lymph % (Auto) 15.3 L, [place] % (Auto) 8.6, Eos % (Auto) 0.1, Baso % (Auto) 0.3, Absolute Neuts (auto) 10.6 H, Absolute Lymphs (auto) 2.16, Nucleated RBC % 0, Sodium 136, Potassium 3.5, Chloride 104, Carbon Dioxide 22.0, Anion Gap 10, BUN 10, Creatinine 0.87, Estim Creat Clear Calc 116.11, Est GFR (MDRD) Af Amer 136, Est GFR (MDRD) Non-Af 112, BUN/Creatinine Ratio 11.4, Glucose 91, Calcium 9.1, Total Bilirubin 0.80, AST 35, ALT 31, Alkaline Phosphatase 79, Total Protein 7.1, Albumin 4.1, Globulin 3.0, Albumin/Globulin Ratio 1.4 Imaging Radiology Impression Abdomen/Pelvis CT 01/26/24 19:18 IMPRESSION: Findings which may be consistent with nonspecific ileitis. No evidence for small bowel obstruction or acute appendicitis. Electronically Signed: Jameson Hager MD at 22:03 EDT ,
--- NOTE | 2024-01-27 13:36 | CASEMGMT ---
Social Work SW met with pt and introduced self and role of SW. Pt has no medical insurance at this time. Pt has met with [facility] for Medicaid application. SW provided pt with additional financial resources including prescription material assistant programs, [employer] card, [employer] and [employer] information. SW spoke with pt regarding mental health. Pt willing to discuss anxiety and depression and emotional support provided. Pt states he has seen a counselor in the past but cannot afford one at this time. SW provided pt with a list of area counselors and highlighted agencies that take a sliding scale fee. Pt accepting of information. ALOK Ruiz
[2024-01-27 13:53] VITALS: BP 114/63; PULSE 78; RESP 14; TEMP 36.9; O2SAT 98
--- NOTE | 2024-01-27 15:09 | PCM.DC ---
Discharge Instructions Diet Discharge Diet: Low fat / Low cholesterol Activity Discharge Activity: Return to Normal Activity Weight Bearing Status: Weight bearing as tolerated Dressing / Incision Call your doctor if you observe: Fever of 101 or Higher, Shortness of breath, Dizziness, Swelling in the ankles, Chest pain and Increased palpitations (irregular heartbeat) Follow Up Care Test Results: Test results from this visit will be discussed in further detail at your follow-up appointment, if applicable. Discharge Plan Admission Admit Date/Time: 01/26/24 22:53 Primary Reason for Your Visit: ilieitis Attending Provider: Kelin Robbins Primary Care Provider: Norma Hart NP Consulting Providers: Alex Farris; Hortencia Gregg Instructions Patient Instructions: Abdominal Pain Discharge Orders/Prescriptions Prescriptions: New ciprofloxacin HCl 500 mg tablet 500 mg PO BID Qty: 14 0RF metronidazole 500 mg tablet 500 mg PO Q8H Qty: 21 0RF Continued vortioxetine 20 MG tablet 20 mg PO DAILY lamotrigine 150 mg tablet 300 mg PO DAILY Discontinued doxycycline hyclate 100 mg capsule 200 mg PO BID Referrals / Follow Up: Dharmesh Vasquez MD [Med Staff - Circuit Design Engineer] - Within 1 Week Mickey Childress DO [Med Staff - Active Staff] - Within 1 Week Norma Hart NP, SANDING MACHINE OPERATOR OR TENDER-C [Primary Care Provider] - Disposition Disposition (needs filled in before D/C Order can be placed): Home, Self Care
--- NOTE | 2024-01-27 15:10 | PCM.DC.SUM ---
Providers Date of Admission: 01/26/24 Date of Discharge: 01/27/24 Primary Care Physician: Norma Hart, ARIAN Consultations 01/26/24 23:54 Consult: Gastroenterology Routine Consulting Provider: Bob Gastroenterology Reason for Consult: Ileitis EMERGENT Consult: No Notified: Yes Date Notified: 01/26/24 Time Notified: 22:54 Method of Notification: ED Physician Initiated Consult: Infectious Disease Routine Consulting Provider: Alex Farris Reason for Consult: Lyme disease, patient requested, has had ongoing BID doxy x 2 yrs. EMERGENT Consult: No Notified: Yes Date Notified: 01/27/24 Time Notified: 02:44 Method of Notification: Text Reason For Visit: ILEITIS Diagnosis Discharge Diagnosis (1) Ileitis: Status: Acute Code(s): K52.9 - Noninfective gastroenteritis and colitis, unspecified Medications at Discharge Home Medications vortioxetine 20 mg tablet 20 mg PO DAILY depression 12/20/19 ciprofloxacin HCl 500 mg tablet 500 mg PO BID #14 tabs 01/27/24 lamotrigine 150 mg tablet 300 mg PO DAILY Seizure disorder 01/27/24 metronidazole 500 mg tablet 500 mg PO Q8H #21 tabs 01/27/24 Hospital Course Operations None Procedures None Summary of Care Provided Minutes Spent on Discharge: 45 Hospital Course: Patient is a 28-year-old male with a past medical history as outlined was admitted through the ED on 01/26/2024 with a complaint of abdominal pain, nausea and vomiting which had been going on for least 24 hours prior to admission. Abdominal pain was continuous and intermittently worsened. It was 10 out of 10 in severity at its worst. Trended on 6-7 out of 10. It was mainly in the right upper and lower quadrant. Review of symptoms otherwise negative. He denied any diarrhea and denied any recent fever or chills or any other symptoms. CT of the abdomen and pelvis showed nonspecific ileitis with no evidence of bowel obstruction or acute appendicitis. Patient was admitted and managed for acute ileitis and started on IV ciprofloxacin and metronidazole. Patient said he had been on doxycycline chronically for at least 2 years for a diagnosis of Lyme's disease. ID was therefore consulted and recommendation was for doxycycline to be discontinued. Abdominal pain resolved and patient felt much better. He requested to be discharged home. GI was ok with patient being discharged. He as discahrged home on PO ciprofloxacin and metronidazole x 7 days. HE is to follow up with his PCP and gastroenterology within 1-2 weeks. Patient seen and examined prior to discharge. He had no active complaints. Review of systems otherwise negative. Labs and vitals reviewed. Home meds reviewed and reconciled. Physical Exam Const alert, oriented x3 and no apparent distress General Appearance: cooperative, comfortable and well kempt Orientation / Consciousness: awake Exam Limitations: no limitations HEENT normocephalic, head/scalp atraumatic, hearing grossly normal bilaterally, moist oral mucous membranes and oropharynx normal Mouth: oral and palatal mucosa normal and dry mucous membranes Eyes PERRL, EOMs intact bilaterally and conjunctivae normal Neck no lymphadenopathy, supple and no JVD Resp normal respiratory effort, no retractions, no use of accessory muscles and clear to auscultation bilaterally Cardio regular rate, regular rhythm, S1 normal heart sound, S2 normal heart sound and no murmurs GI normal to inspection, nondistended, normoactive bowel sounds, soft to palpation and non-tender Extremity normal to inspection, full ROM and no clubbing, cyanosis or edema Skin no rashes or lesions noted and no wounds Neuro oriented x3, CN's II-XII intact bilaterally, moves all extremities, no focal motor deficits and no sensory deficits noted Sensorium / Orientation: awake and alert Motor Exam: strength 5/5 throughout Psych affect normal Weight / BMI Weight Weight: 151 lb 10.848 oz Body Mass Index (BMI) 24.3 ABG / Lab / Microbiology Data 01/27/24 06:17 01/27/24 06:17 Laboratory: Laboratory Results - last 24 hr 01/26/24 18:40: WBC 17.4 H, RBC 5.37, Hgb 16.5, Hct 48.6, MCV 90.5, MCH 30.7, MCHC 34.0, RDW Std Deviation 40.0, RDW Coeff of Jacinto 12.2, Plt Count 338, MPV 10.5, Immature Gran % (Auto) 0.900, Neut % (Auto) 90.1 H, Lymph % (Auto) 5.2 L, Ventura % (Auto) 3.5, Eos % (Auto) 0.0, Baso % (Auto) 0.3, Absolute Neuts (auto) 15.7 H, Absolute Lymphs (auto) 0.90, Nucleated RBC % 0, ESR 1, Sodium 138, Potassium 4.0, Chloride 104, Carbon Dioxide 24.0, Anion Gap 10, BUN 13, Creatinine 1.06, Estim Creat Clear Calc 91.86, Est GFR (MDRD) Af Amer 109, Est GFR (MDRD) Non-Af 90, BUN/Creatinine Ratio 12.3, Glucose 102, Calcium 10.0, Total Bilirubin 0.50, Direct Bilirubin 0.12, AST 35, ALT 36, Alkaline Phosphatase 93, C-React Prot Ext Range < 2.90, Total Protein 8.3 H, Albumin 4.9, Globulin 3.4, Lipase 15 01/27/24 00:53: Procalcitonin 0.13 H 01/27/24 06:17: WBC 14.1 H, RBC 4.70, Hgb 14.5, Hct 42.5, MCV 90.4, MCH 30.9, MCHC 34.1, RDW Std Deviation 40.1, RDW Coeff of Jacinto 12.0, Plt Count 300, MPV 10.2, Immature Gran % (Auto) 0.500, Neut % (Auto) 75.2 H, Lymph % (Auto) 15.3 L, Ventura % (Auto) 8.6, Eos % (Auto) 0.1, Baso % (Auto) 0.3, Absolute Neuts (auto) 10.6 H, Absolute Lymphs (auto) 2.16, Nucleated RBC % 0, Sodium 136, Potassium 3.5, Chloride 104, Carbon Dioxide 22.0, Anion Gap 10, BUN 10, Creatinine 0.87, Estim Creat Clear Calc 116.11, Est GFR (MDRD) Af Amer 136, Est GFR (MDRD) Non-Af 112, BUN/Creatinine Ratio 11.4, Glucose 91, Calcium 9.1, Total Bilirubin 0.80, AST 35, ALT 31, Alkaline Phosphatase 79, Total Protein 7.1, Albumin 4.1, Globulin 3.0, Albumin/Globulin Ratio 1.4 Radiography Diagnostic Testing: Radiology Impression Abdomen/Pelvis CT 01/26/24 19:18 IMPRESSION: Findings which may be consistent with nonspecific ileitis. No evidence for small bowel obstruction or acute appendicitis. Electronically Signed: Jameson Hager MD at 22:03 EDT , D/C Instructions Discharge Diet: Low fat / Low cholesterol Discharge Activity: Return to Normal Activity Weight Bearing Status: Weight bearing as tolerated Call your doctor if you observe: Fever of 101 or Higher, Shortness of breath, Dizziness, Swelling in the ankles, Chest pain and Increased palpitations (irregular heartbeat) Meaningful Use Info Meaningful Use Diagnoses (Choose all that apply): None applicable Discharge Plan Admission Admit Date/Time: 01/26/24 22:53 Primary Reason for Your Visit: ilieitis Attending Provider: Kelin Robbins Primary Care Provider: Norma Hart NP Consulting Providers: Alex Farris; Hortencia Gregg Instructions Patient Instructions: Abdominal Pain Discharge Orders/Prescriptions Prescriptions: New ciprofloxacin HCl 500 mg tablet 500 mg PO BID Qty: 14 0RF metronidazole 500 mg tablet 500 mg PO Q8H Qty: 21 0RF Continued vortioxetine 20 MG tablet 20 mg PO DAILY lamotrigine 150 mg tablet 300 mg PO DAILY Discontinued doxycycline hyclate 100 mg capsule 200 mg PO BID Referrals / Follow Up: Dharmesh Vasquez MD [Med Staff - Belt Sewer] - Within 1 Week Mickey Childress DO [Med Staff - Active Staff] - Within 1 Week Norma Hart NP, [employer]NUAL CAMPAIGN MANAGER-C [Primary Care Provider] - Disposition Disposition (needs filled in before D/C Order can be placed): Home, Self Care Charges/Coding Visit Charges Inpatient E&M: 62652 Disch Hosp >30min
--- NOTE | 2024-01-27 16:04 | NURSING ---
All documentation by student nurse Rafiq Bedoya reviewed by nursing attendant Denisa Moncada RN.
--- NOTE | 2024-01-27 16:47 | CON.PCM.GI_ITS ---
HPI Consult Data Date of Consult: 01/27/24 HPI Narrative Reason for Consultation: Acute enteritis HPI Narrative: ARABELLA ZENDEJAS, is a 28 M who presents to the ED with worsening abdominal pain followed by multiple episodes of vomiting. He has a past medical history of former nicotine vaping user, Seizure disorder, Chronic daily cannabis usage, Anxiety and possible Depression/PTSD, reported diagnosis of Lyme disease on chronic doxycycline BID regimen for the last 2 years who presented to the [facility] ED on 01/26/24 with history of onset over the last 24 hours significant abdominal discomfort with associated nausea and occasional bouts of emesis. He also noted to be continuous and intermittently worsening reported as sharp stabbing as well as dull aching and cramping rated 10 out of 10 in severity at its worst, currently down to 6-7 out of 10 in severity reported initially upon presentation to be worse in the right upper and lower quadrant however upon ED evaluation per hospitalist noted worse left lower quadrant more pronounced with any movement and activity prompting eventual ED evaluation. He notes that the pain is specifically worse when he has more active bowel sounds that he can audibly hear. He denies any recent fevers or chills or ill contacts. He notes no recent flatus but sensation that he needs to. He notes last bowel movement was potentially the day prior and was normal. Workup in the ED included T97.2, heart rate initially 113, BP 120/86, respiratory rate 20, 97% on room air, CBC with WBC 17.4, hemoglobin 16.5, platelet 338 with left shift, CMP unremarkable, lipase 15, CT abdomen and pelvis with findings consistent with a nonspecific ileitis with no evidence of any bowel obstruction or acute appendicitis. ED discussed case with me overnight and I requested continuation of IV ciprofloxacin and Flagyl with planned evaluation. [facility] Medical History Anxiety and depression Cannabis use disorder History of nicotine vaping PTSD (post-traumatic stress disorder) Seizures Home Medications vortioxetine 20 mg tablet 20 mg PO DAILY depression 12/20/19 [History Last Taken Unknown] ciprofloxacin HCl 500 mg tablet 500 mg PO BID #14 tabs 01/27/24 [Rx Last Taken Unknown] lamotrigine 150 mg tablet 300 mg PO DAILY Seizure disorder 01/27/24 [History Last Taken Unknown] metronidazole 500 mg tablet 500 mg PO Q8H #21 tabs 01/27/24 [Rx Last Taken Unkno wn] Allergy/AdvReac Type Severity Reaction Status Date / Time No Known Allergies Allergy Verified 01/26/24 17:45 Family History (Updated 01/27/24 @ 03:[address] Hortencia Gregg MD) Mother Lyme disease Father No problems noted. Surgical History (Updated 01/27/24 @ 03:[address] Hortencia Gregg MD) H/O elbow surgery Social History (Updated 01/27/24 @ 03:[address] Hortencia Gregg MD) household members: significant other Smoking Status: Former smoker how long ago did patient quit smoking: Former nicotine vaping, quit 11/2022, used ~ 10 yrs prior to quitting. alcohol intake: never substance use type: marijuana ROS ROS Narrative Admission Review of Systems: CONSTITUTIONAL: No weight loss, fever, chills, + weakness or fatigue. HEENT: Eyes: No visual loss, blurred vision, double vision or yellow sclerae. Ears, Nose, Throat: No hearing loss, sneezing, congestion, runny nose or sore throat. SKIN: No rash or itching, lesions, wounds. CARDIOVASCULAR: No chest pain, chest pressure or chest discomfort, palpitations, edema, orthopnea, syncopal events. RESPIRATORY: No shortness of breath, cough or sputum, wheezing, hemoptysis. GASTROINTESTINAL: + anorexia, nausea, vomiting, abdominal pain. No constipation, diarrhea, melena, BRBPR. GENITOURINARY: No dysuria, frequency, urgency or retention. NEUROLOGICAL: + Seizure disorder. No headache, dizziness, syncope, paralysis, ataxia, numbness or tingling in the extremities, focal weakness, change in bowel or bladder control. MUSCULOSKELETAL: No muscle, back pain, joint pain or stiffness. HEMATOLOGIC: No anemia, bleeding or bruising. LYMPHATICS: No enlarged nodes. No history of splenectomy. PSYCHIATRIC: + Hx of depression/anxiety/PTSD. ENDOCRINOLOGIC: No reports of sweating, cold or heat intolerance. No polyuria or polydipsia. ALLERGIES: No history of asthma, hives, eczema or rhinitis. Physical Exam Const alert, oriented x3 and no apparent distress General Appearance: cooperative, comfortable and well kempt Orientation / Consciousness: awake Exam Limitations: no limitations HEENT normocephalic, head/scalp atraumatic, hearing grossly normal bilaterally, moist oral mucous membranes and oropharynx normal Mouth: oral and palatal mucosa normal and dry mucous membranes Eyes PERRL, EOMs intact bilaterally and conjunctivae normal Neck no lymphadenopathy, supple and no JVD Resp normal respiratory effort, no retractions, no use of accessory muscles and clear to auscultation bilaterally Cardio regular rate, regular rhythm, S1 normal heart sound, S2 normal heart sound and no murmurs GI normal to inspection, nondistended, normoactive bowel sounds, soft to palpation and non-tender Extremity normal to inspection, full ROM and no clubbing, cyanosis or edema Skin no rashes or lesions noted and no wounds Neuro oriented x3, CN's II-XII intact bilaterally, moves all extremities, no focal motor deficits and no sensory deficits noted Sensorium / Orientation: awake and alert Motor Exam: strength 5/5 throughout Psych affect normal Lab / Micro Data 01/27/24 06:17 01/27/24 06:17 Labs: Laboratory Results - last 24 hr 01/26/24 18:40: WBC 17.4 H, RBC 5.37, Hgb 16.5, Hct 48.6, MCV 90.5, MCH 30.7, MCHC 34.0, RDW Std Deviation 40.0, RDW Coeff of Jacinto 12.2, Plt Count 338, MPV 10.5, Immature Gran % (Auto) 0.900, Neut % (Auto) 90.1 H, Lymph % (Auto) 5.2 L, Millard % (Auto) 3.5, Eos % (Auto) 0.0, Baso % (Auto) 0.3, Absolute Neuts (auto) 15.7 H, Absolute Lymphs (auto) 0.90, Nucleated RBC % 0, ESR 1, Sodium 138, Potassium 4.0, Chloride 104, Carbon Dioxide 24.0, Anion Gap 10, BUN 13, Creatinine 1.06, Estim Creat Clear Calc 91.86, Est GFR (MDRD) Af Amer 109, Est GFR (MDRD) Non-Af 90, BUN/Creatinine Ratio 12.3, Glucose 102, Calcium 10.0, Total Bilirubin 0.50, Direct Bilirubin 0.12, AST 35, ALT 36, Alkaline P hosphatase 93, C-React Prot Ext Range < 2.90, Total Protein 8.3 H, Albumin 4.9, Globulin 3.4, Lipase 15 01/27/24 00:53: Procalcitonin 0.13 H 01/27/24 06:17: WBC 14.1 H, RBC 4.70, Hgb 14.5, Hct 42.5, MCV 90.4, MCH 30.9, MCHC 34.1, RDW Std Deviation 40.1, RDW Coeff of Jacinto 12.0, Plt Count 300, MPV 10.2, Immature Gran % (Auto) 0.500, Neut % (Auto) 75.2 H, Lymph % (Auto) 15.3 L, Millard % (Auto) 8.6, Eos % (Auto) 0.1, Baso % (Auto) 0.3, Absolute Neuts (auto) 10.6 H, Absolute Lymphs (auto) 2.16, Nucleated RBC % 0, Sodium 136, Potassium 3.5, Chloride 104, Carbon Dioxide 22.0, Anion Gap 10, BUN 10, Creatinine 0.87, Estim Creat Clear Calc 116.11, Est GFR (MDRD) Af Amer 136, Est GFR (MDRD) Non-Af 112, BUN/Creatinine Ratio 11.4, Glucose 91, Calcium 9.1, Total Bilirubin 0.80, AST 35, ALT 31, Alkaline Phosphatase 79, Total Protein 7.1, Albumin 4.1, Globulin 3.0, Albumin/Globulin Ratio 1.4 Imaging Radiology Impression Abdomen/Pelvis CT 01/26/24 19:18 IMPRESSION: Findings which may be consistent with nonspecific ileitis. No evidence for small bowel obstruction or acute appendicitis. Electronically Signed: Jameson Hager MD at 22:03 EDT Reading Location ID and State: [facility] / [place] Tel , Service support , Assessment & Plan Assessment/Plan (1) Ileitis: PLAN: Plan The patient is a 28 y/o M w/ PMHx: Former nicotine vaping user, Seizure disorder, Chronic daily cannabis usage, Anxiety and possible Depression/PTSD, reported diagnosis of Lyme disease on chronic doxycycline BID regimen for the last 2 years who presents to the [facility] ED on 01/26/24 with abdominal discomfort with associated nausea and occasional bouts of emesis noted to be continuous and intermittently. Acute ileitis with associated abdominal pain, nausea and emesis: Differential diagnosis does include acute gastroenteritis, drug-induced gastrointestinal injury and possible inflammatory bowel disease. Continue supportive care maintain on aggressive hydration, monitor I&Os, will allow clears, treat with cipro and flagyl. Check autoimmune workup. If patient feels better he can be D C'd to home with a short course of antibiotics. Patient reported history of Lyme disease: Patient reports being diagnosed remotely at least 2 years prior with Lyme disease and has been on doxycycline 200 mg twice daily for at least 2 years. I would recommend stopping doxycycline if appropriate with infectious disease. Chronic daily cannabis usage: Patient smokes and uses cannabis oils, certainly could be contributing to nausea and emesis but he does have ileitis on CT scan. I think he also has elements of marijuana hyperemesis syndrome. I would encourage cessation of marijuana especially in the next 2 to 3 months following this acute enteritis Charges/Coding Visit Charges Inpatient E&M: 79598 Init Hosp L3
[2024-01-29 14:10] LABS: Anti-Centromere B Ab <0.2 AI (0.0-0.9); Anti-Chromatin <0.2 AI (0.0-0.9); Anti-Jo <0.2 AI (0.0-0.9); Anti-Scleroderma-70 AB <0.2 AI (0.0-0.9); Anti-dsDNA Ab 1 IU/mL (0-9); RNP Ab <0.2 AI (0.0-0.9); SJOGREN'S Anti-SS-A test < 0.2 AI (0.0-0.9); SJOGREN'S Anti-SS-B test < 0.2 AI (0.0-0.9); Smith Ab <0.2 AI (0.0-0.9)
[2024-01-29 16:09] LABS: Cytoplasmic Ab (C-ANCA) <1:20 titer (Neg:<1:20); Deamidated Gliadin IgA 6 units (0-19); Deamidated Gliadin IgG 3 units (0-19); Endomysial Antibody IgA Negative (Negative); Immunoglobulin A 184 mg/dL (90-386); Perinuclear Ab (P-ANCA) <1:20 titer (Neg:<1:20); QNTFERON TB Mitogen Value > 10.00 IU/mL (.); QNTFERON TB Nil Value 0 IU/mL (.); QNTFERON TB1+ Ag Value 0 IU/mL (.); QNTFERON TB2+ Ag Value 0 IU/mL (.); QNTIFERON TB Positive Criteria Negative (Negative); t-Transglutaminase IgA <2 U/mL (0-3)
[2024-02-02 12:09] LABS: ACCA 13 units (0-90); AMCA 5 units (0-100); Chromogranin A 62.1 ng/mL (0.0-101.8); HEPATITIS B SURFACE AG Negative (Negative); Hep C Antibodies Non Reactive (Non Reactive); Hepatitis A IgM Antibody Negative (Negative); Hepatitis B Core AB IgM Negative (Negative); gASCA 21 units (0-50)
[2024-02-03 14:44] LABS: ALCA 3 units (0-60)
== END 2024-01-27 18:49 | disposition home or self-care (01) | DRG 392 ==
LOC: ED 22:44 → MS3 23:25
PROVIDERS: Internal Medicine Gastroenterology; Admitting Provider Family Medicine; Emergency Provider Emergency Medicine; PCP Nurse Practitioner Family; Visit Provider Student in an Organized Health Care Education/Training Program
DX: K52.9 Noninfective gastroenteritis and colitis, unspecified (principal); A69.20 Lyme disease, unspecified; G40.909 Epilepsy, unspecified, not intractable, without status epilepticus; F12.988 Cannabis use, unspecified with other cannabis-induced disorder; E86.0 Dehydration; F41.8 Other specified anxiety disorders; R00.0 Tachycardia, unspecified; F43.10 Post-traumatic stress disorder, unspecified; Z87.891 Personal history of nicotine dependence; Z79.899 Other long term (current) drug therapy
CPT/HCPCS: 36415; 74177; 80048; 80053; 80074; 80076; 82784; 83516; 83690; 84145; 85025; 85652; 86036; 86140; 86225; 86235; 86255; 86256; 86316; 86480; 86671; 99282; J7030; Q9967; A4216; J0744; J2405

== ENCOUNTER 2024-04-20 15:22 | Emergency (ER) | payer SELFPAY ==
[2024-04-20 15:23] VITALS: BP 109/90; PULSE 108; RESP 16; TEMP 36.4; O2SAT 99; BMI 23.6
--- NOTE | 2024-04-20 15:50 | CT_ITS ---
INDICATION: recurrent seizures EXAMINATION: CT BRAIN - CT Head or Brain W/O Contrast Injection TECHNIQUE: Multiple axial images were obtained of the head without intravenous contrast. A radiation dose optimization technique was used for this scan. IV Contrast dosage and agent: None. COMPARISON: 12/20/2019 FINDINGS: BRAIN PARENCHYMA: No intra- or extra-axial hemorrhage. No evidence of acute infarct. No intracranial mass or mass effect. There is preservation of the michael/white matter interface. Posterior fossa structures are unremarkable. CSF SPACES: Appropriate for age. No hydrocephalus. Basal cisterns are patent. CALVARIUM, SKULL BASE, PARANASAL SINUSES AND MASTOID AIR CELLS: Mucous retention cyst left maxillary sinus. No discrete lytic or blastic abnormalities. ORBITS: Both globes, extraocular muscles, optic nerves and retrobulbar fat appear unremarkable. CT/Brain/Head without Contrast IMPRESSION: No acute intracranial findings. Electronically Signed: Faraz Hurtado MD at 16:51 EDT ,
--- NOTE | 2024-04-20 15:50 | EX.ED.DYSGE1 ---
HPI History of Present Illness Chief Complaint: Seizure Informant: patient and friend Narrative Narrative: 28-year-old male presents out of concern for several seizures here in the last 3 days. He states he believes there have been 3 of them. 2 of them were witnessed by someone else, he was told it was a full-blown tonic-clonic grand mall seizure, he was unconscious for them, was told they lasted 2 minutes, plus or minus, each. 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 He recently made an appointment with a neurologist in [place] but does not have an appointment until July. He has never had a tonic-clonic grand mal seizure before in his life that he knows of, until couple days ago. Last night he woke up with his back sore, diaphoretic, and thinks that he had another 1 because since then he has felt out of it like he does after having had an abscess onset seizure. The day that he had 2 grand mal seizures that were witnessed couple days ago, he states that he was huffing nitrous oxide, but it was 6-8 hours prior to the episode. Other than marijuana he has used no other substances. Also, states couple months ago he had been on doxycycline for a year or 2, treating Lyme disease, and had some issues so had to stop it and stopped his lamotrigine which she was on for the seizures as well. He just restarted the lamotrigine 1 week ago today at 100 mg daily, and was told to start upping it to 200 mg daily today which she has not done yet. [facility] Medical History Anxiety and depression Cannabis use disorder History of nicotine vaping Hx of seizure disorder Elevated blood-pressure reading, without diagnosis of hypertension Sinus tachycardia seen on drum attendant Seizures PTSD (post-traumatic stress disorder) Home Medications ?Medication ?Instructions ?Recorded ?Last Taken ?Type vortioxetine 20 mg tablet 20 mg PO DAILY depression 12/20/19 Unknown History ciprofloxacin HCl 500 mg tablet 500 mg PO BID #14 tabs 01/27/24 Unknown Rx lamotrigine 150 mg tablet 300 mg PO DAILY Seizure disorder 01/27/24 Unknown History metronidazole 500 mg tablet 500 mg PO Q8H #21 tabs 01/27/24 Unknown Rx Allergy/AdvReac Type Severity Reaction Status Date / Time No Known Allergies Allergy Verified 04/20/24 15:25 Family History (Updated 01/27/24 @ 03:[address] Hortencia Gregg MD) Mother Lyme disease Father No problems noted. Surgical History (Updated 01/27/24 @ 03:[address] Hortencia Gregg MD) H/O elbow surgery Social History (Updated 04/20/24 @ 15:[address] Manolo Haynes MD) household members: significant other Smoking Status: Former smoker how long ago did patient quit smoking: Former nicotine vaping, quit 11/2022, used ~ 10 yrs prior to quitting. alcohol intake: never substance use type: marijuana and inhalants ROS ROS ED Constitutional Constitutional ED: Reports other Details: feel out of it ; Denies chills or fever(s) Eyes Eyes: Denies change in vision or diplopia ENT ENT ED: Denies rhinorrhea or sore throat Cardiovascular Cardiovascular: Denies chest pain or palpitations Respiratory/Chest Respiratory/Chest: Denies cough or dyspnea Gastrointestinal Gastrointestinal: Denies abdominal pain, diarrhea, nausea or vomiting Genitourinary Genitourinary ED: Denies dysuria or hematuria Musculoskeletal Musculoskeletal: Denies back pain or neck pain Integumentary Denies abscess or rash Neurologic Neurologic: Reports seizures; Denies headache(s), paresthesias or weakness Psychiatric Psychiatric: Denies anxiety or suicidal thoughts EXAM Physical Exam Const Vital Signs: 04/20/24 15:23 04/20/24 17:14 Temperature 97.6 F L 98.2 F Temperature Source Temporal Pulse Rate 108 H 92 Respiratory Rate 16 18 Blood Pressure 109/90 H 109/88 H Blood Pressure Mean 96 95 Pulse Ox 99 98 Oxygen Delivery Method Room Air Positive well nourished and well developed General Appearance ED: well developed and NAD HEENT Reports moist mucous membranes normocephalic and atraumatic Eyes PERRL and EOMs intact bilaterally Neck full ROM and supple Chest Wall inspection of chest normal and palpation of chest normal Resp normal respiratory effort and clear to auscultation bilaterally Cardio regular rate, regular rhythm and no murmurs GI non-tender and non-distended Auscultation: normoactive bowel sounds Palpation: soft Back/Spine no CVA tenderness General Back: other FROM Extremity normal to inspection General Extremety ED: Negative for edema, pulses abnormal or tenderness General Extremity: Negative for edema or pulses abnormal Neuro oriented x3, CN's II-XII intact bilaterally and no sensory deficits noted Sensorium / Orientation: awake and alert Motor Exam: strength 5/5 throughout Skin no rashes or lesions noted and no wounds MDM MDM MDM Narrative Medical decision making narrative: Given the patient's history I think reasonable to obtain labs and a head CT. This was done, the labs are noted, his calcium is just barely elevated compared with similar readings before that were at or near the high-normal limit. Head CT is normal I reviewed the images and the result which I agree with. Patient had no seizure activity here in the ER his vital signs are normal, and at this time he will be discharged home in stable condition and advised to increase his lamotrigine to 200 mg as soon as possible and follow-up. If he continues to have seizures before he is able to follow-up with neurology despite increasing his dose, he is welcome to return and we can consider switching up since he is tolerating lamotrigine and has been ramping up the dose since he recently restarted I think that is reasonable for now he is in agreement. He is also given a referral to our local neurologist in case he wanted a second option. Additionally, the patient did complain that occasionally he felt his heart beating and called the palpitations. I did put him on a monitor while he was here and obtained an EKG it is normal and his rhythm is normal, sinus arrhythmia. He was counseled to discontinue huffing. The timing does not make sense for it obviously being caused by this, however he was cautioned about the fact that he could make himself hypoxic and not realize it which could also lower the seizure threshold. Lab Data Attestation: I reviewed the patient's lab results. Labs: Laboratory Results - last 24 hr 04/20/24 16:00 WBC 8.2 RBC 5.55 Hgb 17.3 H Hct 50.1 MCV 90.3 MCH 31.2 MCHC 34.5 RDW Std Deviation 39.5 RDW Coeff of Jacinto 11.9 Plt Count 306 MPV 10.0 Immature Gran % (Auto) 0.200 Neut % (Auto) 69.9 Lymph % (Auto) 23.3 [place] % (Auto) 5.8 Eos % (Auto) 0.2 Baso % (Auto) 0.6 Absolute Neuts (auto) 5.7 Absolute Lymphs (auto) 1.92 Nucleated RBC % 0 Sodium 136 Potassium 3.5 Chloride 99 Carbon Dioxide 30.0 Anion Gap 7 BUN 11 Creatinine 1.11 Estim Creat Clear Calc 91.01 Est GFR (MDRD) Af Amer 103 Est GFR (MDRD) Non-Af 85 BUN/Creatinine Ratio 9.9 L Glucose 103 Calcium 10.3 H Radiography Diagnostic Testing: Clinical Impression(s) from Imaging Studies Brain CT 04/20/24 15:50 IMPRESSION: No acute intracranial findings. Electronically Signed: Faraz Hurtado MD at 16:51 EDT , Rhythm Strip Rhythm Strip: Sinus Rhythm Rate: 85 Ectopy: None EKG Initial EKG: Attestation: I personally reviewed and interpreted this EKG as follows: Interpretation: Sinus Rhythm and No Acute Injury Pattern Comments: nml EKG Discharge Plan Triage Chief Complaint: Seizure ED Provider: Manolo Haynes Dx/Rx/DC Orders Clinical Impression: Grand mal seizure, Huffing Instructions: ED Seizure, Recurrent (Adult) Prescriptions: No Action vortioxetine 20 MG tablet 20 mg PO DAILY lamotrigine 150 mg tablet 300 mg PO DAILY ciprofloxacin HCl 500 mg tablet 500 mg PO BID Qty: 14 0RF metronidazole 500 mg tablet 500 mg PO Q8H Qty: 21 0RF Primary Care Provider: Norma Hart HANDS AND DIAL INSPECTOR Referrals: Vik Winter MD [Non-Staff -Ordering Privileges] - (Or the neurologist that you have an appointment with) Norma Hart HANDS AND DIAL INSPECTOR, HANDS AND DIAL INSPECTOR-C [Primary Care Provider] - Activity Restrictions/Additional Instructions: Increase your lamotrigine to 200 mg daily as soon as possible; if you have already taken 100 mg today, take an additional 100 mg as soon as possible. Print Language: Zambian Disposition Disposition: Home, Self Care Discharge Date/Time: 04/20/24 17:20
--- NOTE | 2024-04-20 15:51 | EKG12_ITS ---
Test Reason : Blood Pressure : / mmHG Vent. Rate : 082 BPM Atrial Rate : 082 BPM P-R Int : 154 ms QRS Dur : 096 ms QT Int : 354 ms P-R-T Axes : 040 053 047 degrees QTc Int : 413 ms Normal sinus rhythm with sinus arrhythmia Normal ECG Confirmed by Cr Lawrence ([id number]), editor producer REI ANTONIO ([id number]) on 04/21/2024 9:45:31 AM Referred By: DEXTER Confirmed By:Cr Lawrence
[2024-04-20 16:11] LABS: Absolute Lymphocyte Count 1.92 X10^3/uL (0.83-4.51); Absolute Neutrophil Count 5.7 X10^3/uL (2.0-7.7); Basophil# 0.05 X10^3/uL; Basophil% 0.6 % (0-1); Eosinophil# 0.02 X10^3/uL; Eosinophils% 0.2 % (0-5); Hematocrit 50.1 % (40-54); Hemoglobin 17.3 g/dL (13.0-16.5); Lymphocyte # 1.92 X10^3/ul (0.83-4.51); Lymphocyte % 23.3 % (19-41); Mean Corp Hgb Conc 34.5 g/dL (32-36); Mean Corpuscular Hgb 31.2 pg (27.0-32.0); Mean Corpuscular Volume 90.3 fL (80-94); Monocyte# 0.48 X10^3/uL; Monocyte% 5.8 % (0-10); NRBC Flagged by Analyzer 0 % (0-5); Neutrophil # 5.74 X10^3/uL (2.7-7.7); Neutrophil % 69.9 % (47-70); Platelet Count 306 K/mm3 (150-450); RBC Distribution Width CV 11.9 % (11.6-14.6); RBC Distribution Width SD 39.5 fl (35.1-43.9); Red Blood Count 5.55 M/mm3 (4.6-6.2); White Blood Count 8.2 K/mm3 (4.4-11.0)
[2024-04-20 16:27] LABS: Anion Gap 7 (5-15); BUN 11 mg/dL (7-18); BUN/Creat Ratio 9.9 RATIO (10-20); Calcium,Total 10.3 mg/dL (8.5-10.1); Chloride 99 mmol/L (98-107); Creatinine, Serum 1.11 mg/dL (0.70-1.30); EST Glomerular Filtration Rate 85 mL/min (>60); Est Glom Filt Rate - Afr Amer 103 mL/min (>60); Estimated Creatinine Clearance 91.01 ml/min; Glucose 103 mg/dL (74-106); Potassium 3.5 mmol/L (3.5-5.1); Sodium Level 136 mmol/L (136-145)
[2024-04-20 17:14] VITALS: BP 109/88; PULSE 92; RESP 18; TEMP 36.8; O2SAT 98
== END 2024-04-20 17:20 | disposition home or self-care (01) ==
PROVIDERS: Emergency Provider Emergency Medicine; PCP Nurse Practitioner Family; Visit Provider Emergency Medicine
DX: G40.409 Other generalized epilepsy and epileptic syndromes, not intractable, without status epilepticus (principal); Z87.891 Personal history of nicotine dependence
CPT/HCPCS: 70450; 80048; 85025; 93005; 99283; A4216

== ENCOUNTER 2024-06-02 20:15 | Emergency (ER) | payer SELFPAY ==
[2024-06-02] VITALS (25 sets, daily range): BP systolic 109–201; BP diastolic 60–145; PULSE 99–168; RESP 14–332; TEMP 36.6–36.8; O2SAT 90–100; BMI 28.4
--- NOTE | 2024-06-02 20:27 | EKG12_ITS ---
Test Reason : DYSRHYTHMIA Blood Pressure : / mmHG Vent. Rate : 099 BPM Atrial Rate : 099 BPM P-R Int : 152 ms QRS Dur : 104 ms QT Int : 328 ms P-R-T Axes : 046 049 044 degrees QTc Int : 420 ms Normal sinus rhythm Incomplete right bundle branch block Borderline ECG Confirmed by SARAH MOORE, SYBIL ([id number]), yard person BEVERLY LITTLE ([id number]) on 06/07/2024 1:59:31 PM Referred By: Confirmed By:IVETTE SMITH MD
[2024-06-02 20:44] LABS: Absolute Lymphocyte Count 2.11 X10^3/uL (0.83-4.51); Absolute Neutrophil Count 12.3 X10^3/uL (2.0-7.7); Basophil# 0.06 X10^3/uL; Basophil% 0.4 % (0-1); Eosinophil# 0.06 X10^3/uL; Eosinophils% 0.4 % (0-5); Hematocrit 46.4 % (40-54); Hemoglobin 16.2 g/dL (13.0-16.5); Lymphocyte # 2.11 X10^3/ul (0.83-4.51); Lymphocyte % 13.6 % (19-41); Mean Corp Hgb Conc 34.9 g/dL (32-36); Mean Corpuscular Volume 88.7 fL (80-94); Mean Platelet Vol. 9.4 fl (6.2-12.0); Monocyte# 0.87 X10^3/uL; Monocyte% 5.6 % (0-10); NRBC Flagged by Analyzer 0 % (0-5); Neutrophil # 12.26 X10^3/uL (2.7-7.7); Neutrophil % 79.4 % (47-70); Platelet Count 384 K/mm3 (150-450); RBC Distribution Width CV 11.9 % (11.6-14.6); RBC Distribution Width SD 38.5 fl (35.1-43.9); Red Blood Count 5.23 M/mm3 (4.6-6.2); White Blood Count 15.5 K/mm3 (4.4-11.0)
[2024-06-02] MEDS: 0.9% Normal Saline (1000mL) 1,000 ML 1000 ML IV (20:48)
--- NOTE | 2024-06-02 20:50 | EX.ED.DYSGE1 ---
HPI History of Present Illness Chief Complaint: Seizure Narrative Narrative: 28-year-old male presenting after seizure. Patient states he forgot to take his lamotrigine last evening and noticed this morning that he forgot. He states he took his morning dose. Sometime around 4:00 he woke up on the floor realize he had a seizure had some blood on the floor as well as saliva. He told his family. He waited for friend to come over and when the friend came over he had another seizure but he had come back to baseline. Patient has a headache, body aches. He has a superficial abrasion over the forehead and the face. No jaw malocclusion. He is alert and awake. He states he has a history of a subdural hematoma when he was a young child which caused a seizure history. Up until this last healing abscess he has now had 3 or 4 grand mal seizures. His neurologist has upped his dose of lamotrigine to 300 mg p.o. twice daily. 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 Surgical History H/O elbow surgery Social History household members: significant other Smoking Status: Former smoker how long ago did patient quit smoking: Former nicotine vaping, quit 11/2022, used ~ 10 yrs prior to quitting. alcohol intake: never substance use type: marijuana and inhalants ROS ROS ED Constitutional Constitutional ED: Denies chills or fever(s) Eyes Eyes: Denies change in vision or diplopia ENT ENT ED: Denies rhinorrhea or sore throat Cardiovascular Cardiovascular: Denies chest pain or palpitations Respiratory/Chest Respiratory/Chest: Denies cough or dyspnea Gastrointestinal Gastrointestinal: Denies abdominal pain, nausea or vomiting Genitourinary Genitourinary ED: Denies dysuria or hematuria Musculoskeletal Musculoskeletal: Reports myalgias; Denies arthralgias or neck pain Integumentary Denies abscess Neurologic Neurologic: Reports headache(s) EXAM Physical Exam Const Vital Signs: 06/02/24 20:19 06/02/24 21:56 Temperature 98.3 F Temperature Source Oral Pulse Rate 110 H 154 H Respiratory Rate 16 22 H Respiratory Pattern Normal Blood Pressure 134/78 H Blood Pressure Mean 96 Pulse Ox 97 100 Oxygen Delivery Method Room Air Fraction of Inspired Oxygen (FIO2) 100 Positive well nourished General Appearance ED: NAD HEENT Reports moist mucous membranes Eyes PERRL and EOMs intact bilaterally Neck no lymphadenopathy Resp normal respiratory effort and clear to auscultation bilaterally Cardio regular rate and regular rhythm GI normal to inspection, nondistended, normoactive bowel sounds Neuro oriented x3, CN's II-XII intact bilaterally and no sensory deficits noted Sensorium / Orientation: alert Motor Exam: strength 5/5 throughout MDM MDM MDM Narrative Medical decision making narrative: Patient presenting after grand mal seizure. He fell and hit the floor and lost consciousness. Differential includes subdural hematoma, subarachnoid hemorrhage, seizure, dehydration, anemia, electrolyte abnormalities. CBC will be obtained to assess white blood cell count, hemoglobin, platelets. BMP to assess renal function, electrolytes, glucose. EKG impression: [address] brain will be obtained. Patient given a liter normal saline. CBC returned with a leukocytosis of 15.5. Hemoglobin 16.2. Creatinine is slightly elevated today at 1.38 however electrolytes are normal. High-sensitivity troponin was 39. EKG showed a sinus rhythm at 99 bpm without sign of ischemic change or dysrhythmia. Right bundle branch block pattern noted. Patient was alert and talking to me. I examined him and he had some superficial scratches on the face around the right nasolabial fold and a superficial abrasion to the chin and forehead. No evidence of basilar skull fracture. Neuroexam showed no focal neurologic deficits or lateralizing signs or symptoms. The patient was complaining of nausea so I ordered him some Zofran and we took him over to CT where he had grand mal seizure and became very agitated. He had a short postictal period and then became so agitated he ripped his IV out. He was thrashing around on the table. He was given 2 separate doses of 2 mg of Ativan which did not stop him. He was then given 2 of Versed was also was not helpful. We brought him back to room to and at this point I determined I would need to intubate him. He was intubated using RSI. 7.5 ET tube was placed. Good color change noted as well as bilateral breath sounds. OG tube was placed. This appears to be a little deep on my interpretation so it was pulled back. Initially after the patient was intubated and paralyzed he was taken over to CT her CT brain, cervical spine, maxillofacial were obtained. When he arrived back to the room he was still agitated and fighting. It took several staff to hold him down. Does appear that at times he might be having seizure episodes and his blood pressure and heart rate go up however he is not having a tonic-clonic seizure. After this he becomes agitated and has had several episodes of this where he is pulling at his restraints. He was started on a propofol drip which did not stop the seizure activity. He was then loaded with Keppra which still did not seem to help. At this point I started him on ketamine drip and it did takes a while to get him somewhat sedated. CT of the brain, maxillofacial, cervical spine all negative for acute findings. Urinalysis was negative for infection but did show 50 ketones. There was some occult blood. This is likely from Adams catheter placement. Positive for cannabinoids. Chest x-ray interpreted by myself shows no acute cardiopulmonary process. Shows good positioning of the ET tube. Discussed the case with Dr. Thorpe who is on-call for neurology at [facility]. He recommended starting a fentanyl drip at 50 mcg/h after giving him fentanyl bolus. He was accepted to [facility]. Dr. Thorpe recommended that we use [facility]. We are currently waiting [facility] he should be here in a few minutes and the patient is still fighting his restraints. At this point for the patient's safety and safety of the [facility] crew going to give vecuronium to paralyze him. He is maxed out on propofol at this point as well as ketamine. Dr. Thorpe requested that I give his lamotrigine 300 mg through his OG tube which was done. On [facility] arrival he requested another 50 mcg of fentanyl. He had just received his vecuronium and is now calm. Impression: 1. Status epilepticus 2. Agitation 3. Leukocytosis Lab Data Labs: Laboratory Results - last 24 hr 06/02/24 06/02/24 20:31 21:55 WBC 15.5 H RBC 5.23 Hgb 16.2 Hct 46.4 MCV 88.7 MCH 31.0 MCHC 34.9 RDW Std Deviation 38.5 RDW Coeff of Jacinto 11.9 Plt Count 384 MPV 9.4 Immature Gran % (Auto) 0.600 Neut % (Auto) 79.4 H Lymph % (Auto) 13.6 L [place] % (Auto) 5.6 Eos % (Auto) 0.4 Baso % (Auto) 0.4 Absolute Neuts (auto) 12.3 H Absolute Lymphs (auto) 2.11 Nucleated RBC % 0 Sodium 135 L Potassium 3.7 Chloride 102 Carbon Dioxide 19.0 L Anion Gap 14 BUN 13 Creatinine 1.38 H Est GFR (MDRD) Af Amer 80 Est GFR (MDRD) Non-Af 66 BUN/Creatinine Ratio 9.4 L Glucose 108 H Calcium 10.0 Total Creatine Kinase 298 Troponin I High Sens 39 Triglycerides 69 Urine Color Yellow Urine Clarity Sl. Cloudy Urine pH 6.0 Ur Specific [place] 1.025 Urine Protein 100 H Urine Glucose (UA) Normal Urine Ketones 50 H Urine Occult Blood 50 H Urine Nitrite Negative Urine Bilirubin Negative Urine Urobilinogen Normal Ur Leukocyte Esterase Negative Urine RBC 0-5 SEEN Urine WBC 0 SEEN Ur Squamous Epith Cells 0-5 SEEN Urine Bacteria 0 SEEN Hyaline Casts 0-5 SEEN Urine Mucus 0 SEEN Urine Opiates Screen NEGATIVE Urine Methadone Screen NEGATIVE Ur Barbiturates Screen NEGATIVE Ur Phencyclidine Scrn NEGATIVE Ur Amphetamines Screen NEGATIVE MDMA (Ecstasy) Screen NEGATIVE U Benzodiazepines Scrn NEGATIVE Urine Cocaine Screen NEGATIVE U Cannabinoids Screen POSITIVE H Ur Drug Screen Comment ABG Data ABG results: ABG 06/02/24 22:14 Specimen Type ART Sample Site L Radial pH 7.35 Bicarbonate Actual 19.5 L Total CO2 21 Base Excess -6 L O2 Saturation 100 H O2 % 100.0 ABG pCO2 35.5 ABG pO2 507 H* Heath Test Positive Respiration Rate 16 O2 Delivery Device Adult Vent Vent Mode AC Tidal Volume 500.0 POC PEEP 5 Crit Call To/Read Back Yes Radiography Diagnostic Testing: Clinical Impression(s) from Imaging Studies Brain CT 06/02/24 21:05 IMPRESSION: 1. Straightening of expected cervical lordosis may be in part positional. Otherwise, no significant abnormality in the cervical spine. 2. Significant motion limitation particularly through the level of the C1 and C2 segments. These are demonstrated be intact on the maxillofacial segment of the examination. Electronically Signed: To VJesse Stringer DO at 22:55 EDT , Cervical Spine CT 06/02/24 21:05 IMPRESSION: 1. Straightening of expected cervical lordosis may be in part positional. Otherwise, no significant abnormality in the cervical spine. 2. Significant motion limitation particularly through the level of the C1 and C2 segments. These are demonstrated be intact on the maxillofacial segment of the examination. Electronically Signed: To VJesse Stringer DO at 22:45 EDT , Facial/Sinus 06/02/24 21:05 IMPRESSION: 1. Straightening of expected cervical lordosis may be in part positional. Otherwise, no significant abnormality in the cervical spine. 2. Significant motion limitation particularly through the level of the C1 and C2 segments. These are demonstrated be intact on the maxillofacial segment of the examination. Electronically Signed: To BoschJesse Stringer DO at 22:55 EDT , Critical Care Time Critical Care Time: Yes Critical care time (excluding procedures): 75-104 minutes (80), Discussing w/Patient &/or Family/Cleaning Specialist, Discussing w/Consultants, Arranging Admission or Transfer and Performing Direct Patient Care at Bedside Discharge Plan Triage Chief Complaint: Seizure ED Provider: Fabien Tay Dx/Rx/DC Orders Prescriptions: No Action vortioxetine 20 MG tablet 20 mg PO DAILY lamotrigine 150 mg tablet 300 mg PO DAILY ciprofloxacin HCl 500 mg tablet 500 mg PO BID Qty: 14 0RF metronidazole 500 mg tablet 500 mg PO Q8H Qty: 21 0RF Primary Care Provider: Norma Hart NP Referrals: Norma Hart INLAYER, INLAYER-C [Primary Care Provider] - Print Language: Tristanian
[2024-06-02 21:00] LABS: Anion Gap 14 (5-15); BUN 13 mg/dL (7-18); BUN/Creat Ratio 9.4 RATIO (10-20); Chloride 102 mmol/L (98-107); Creatinine, Serum 1.38 mg/dL (0.70-1.30); EST Glomerular Filtration Rate 66 mL/min (>60); Est Glom Filt Rate - Afr Amer 80 mL/min (>60); Glucose 108 mg/dL (74-106); Potassium 3.7 mmol/L (3.5-5.1); Sodium Level 135 mmol/L (136-145); Troponin-I HS 39 pg/mL (3.0-78.0)
--- NOTE | 2024-06-02 21:05 | CT_ITS ---
EXAM: CT HEAD AND MAXILLOFACIAL WITHOUT INTRAVENOUS CONTRAST CLINICAL INDICATION: trauma , pain. TECHNIQUE: Helically acquired images were obtained of the head/brain and face without intravenous contrast. This CT exam was performed using one or more of the following dose reduction techniques: automated exposure control, adjustment of the mA and/or kV according to patient size, and/or use of iterative reconstruction technique. COMPARISON: CT head, 04/20/2024 FINDINGS: BRAIN AND EXTRA-AXIAL SPACES: No significant abnormality. No intra- or extra-axial hemorrhage. No evidence of acute infarct. No intracranial mass or mass effect. There is preservation of the michael/white matter interface. Posterior fossa structures are unremarkable. Ventricles are appropriate for age. No hydrocephalus. Basal cisterns are patent. BONES/JOINTS: Leftward nasal septal deviation and spurring abutting the lateral sidewall of the nasal cavity. No discrete lytic or blastic abnormalities. No displaced fracture. SOFT TISSUES: Right supraorbital and right-sided nasal soft tissue swelling. No discrete fluid collections. SINUSES: Mucus retention cyst in the left maxillary sinus. MASTOID AIR CELLS: No significant abnormality. Clear. ORBITS: No acute findings. DENTAL: No significant findings. No periodontal osseous erosion. TUBES, LINES AND DEVICES: Endotracheal and enteric intubation. IMPRESSION: 1. No CT evidence of acute intracranial pathology. 2. No evidence of acute maxillofacial fracture. EXAM: CT CERVICAL SPINE WITHOUT INTRAVENOUS CONTRAST CLINICAL INDICATION: trauma , pain. TECHNIQUE: Helically acquired images were obtained of the cervical spine without intravenous contrast. 2D reformatted images were reviewed. This CT exam was performed using one or more of the following dose reduction techniques: automated exposure control, adjustment of the mA and/or kV according to patient size, and/or use of iterative reconstruction technique. COMPARISON: No relevant prior studies available. FINDINGS: VERTEBRAE: Straightening of expected cervical lordosis may be in part positional. Significant motion limitation particularly through the level of the C1 and C2 segments. These are demonstrated be intact on the maxillofacial segment of the examination. No fracture. No traumatic subluxation. No discrete lytic or blastic abnormality. Normal craniocervical junction and cervicothoracic junction. DISCS/SPINAL CANAL/NEURAL FORAMINA: No significant abnormality. Disc heights are preserved. No critical stenosis. SOFT TISSUES: No significant abnormality. No prevertebral soft tissue swelling. LYMPH NODES: No significant abnormality. No cervical adenopathy. LUNG APICES: Normal as visualized. Clear. TUBES, LINES AND DEVICES: Endotracheal and enteric intubation. CT/Spine Cervical without Contras IMPRESSION: 1. Straightening of expected cervical lordosis may be in part positional. Otherwise, no significant abnormality in the cervical spine. 2. Significant motion limitation particularly through the level of the C1 and C2 segments. These are demonstrated be intact on the maxillofacial segment of the examination. Electronically Signed: To Stringer DO at 22:45 EDT ,
--- NOTE | 2024-06-02 21:05 | CT_ITS ---
EXAM: CT HEAD AND MAXILLOFACIAL WITHOUT INTRAVENOUS CONTRAST CLINICAL INDICATION: trauma , pain. TECHNIQUE: Helically acquired images were obtained of the head/brain and face without intravenous contrast. This CT exam was performed using one or more of the following dose reduction techniques: automated exposure control, adjustment of the mA and/or kV according to patient size, and/or use of iterative reconstruction technique. COMPARISON: CT head, 04/20/2024 FINDINGS: BRAIN AND EXTRA-AXIAL SPACES: No significant abnormality. No intra- or extra-axial hemorrhage. No evidence of acute infarct. No intracranial mass or mass effect. There is preservation of the michael/white matter interface. Posterior fossa structures are unremarkable. Ventricles are appropriate for age. No hydrocephalus. Basal cisterns are patent. BONES/JOINTS: Leftward nasal septal deviation and spurring abutting the lateral sidewall of the nasal cavity. No discrete lytic or blastic abnormalities. No displaced fracture. SOFT TISSUES: Right supraorbital and right-sided nasal soft tissue swelling. No discrete fluid collections. SINUSES: Mucus retention cyst in the left maxillary sinus. MASTOID AIR CELLS: No significant abnormality. Clear. ORBITS: No acute findings. DENTAL: No significant findings. No periodontal osseous erosion. TUBES, LINES AND DEVICES: Endotracheal and enteric intubation. IMPRESSION: 1. No CT evidence of acute intracranial pathology. 2. No evidence of acute maxillofacial fracture. EXAM: CT CERVICAL SPINE WITHOUT INTRAVENOUS CONTRAST CLINICAL INDICATION: trauma , pain. TECHNIQUE: Helically acquired images were obtained of the cervical spine without intravenous contrast. 2D reformatted images were reviewed. This CT exam was performed using one or more of the following dose reduction techniques: automated exposure control, adjustment of the mA and/or kV according to patient size, and/or use of iterative reconstruction technique. COMPARISON: No relevant prior studies available. FINDINGS: VERTEBRAE: Straightening of expected cervical lordosis may be in part positional. Significant motion limitation particularly through the level of the C1 and C2 segments. These are demonstrated be intact on the maxillofacial segment of the examination. No fracture. No traumatic subluxation. No discrete lytic or blastic abnormality. Normal craniocervical junction and cervicothoracic junction. DISCS/SPINAL CANAL/NEURAL FORAMINA: No significant abnormality. Disc heights are preserved. No critical stenosis. SOFT TISSUES: No significant abnormality. No prevertebral soft tissue swelling. LYMPH NODES: No significant abnormality. No cervical adenopathy. LUNG APICES: Normal as visualized. Clear. TUBES, LINES AND DEVICES: Endotracheal and enteric intubation. CT/Brain/Head without Contrast IMPRESSION: 1. Straightening of expected cervical lordosis may be in part positional. Otherwise, no significant abnormality in the cervical spine. 2. Significant motion limitation particularly through the level of the C1 and C2 segments. These are demonstrated be intact on the maxillofacial segment of the examination. Electronically Signed: To Stringer DO at 22:55 EDT ,
[2024-06-02] MEDS: LORazepam 2 MG/ML Syringe IV ×2 (21:18→21:25)
--- NOTE | 2024-06-02 21:34 | NURSING ---
Verbal order from Dr. Tay to apply x4 leather restraints. See Matilda RN note about pt behavior. Applied at 0299
[2024-06-02] MEDS: Midazolam 2 MG/2 ML Syringe IV (21:35)
[2024-06-02] MEDS: Etomidate 20 MG/10 ML Vial IV (21:44)
[2024-06-02] MEDS: Rocuronium Bromide 50 MG/5 ML Vial 40 MG IV (21:45)
[2024-06-02] MEDS: Propofol 10MG/Ml 1,000 MG/100 ML Bottle 4.8 MG CONT INF (21:48)
[2024-06-02] MEDS: 0.9% Normal Saline (1000mL) 1,000 ML 999 ML IV (22:00)
--- NOTE | 2024-06-02 22:00 | RAD_ITS ---
EXAM: XR ABDOMEN, 1 VIEW CLINICAL INDICATION: OG tube placement TECHNIQUE: Frontal supine view of the abdomen/pelvis. COMPARISON: Chest radiograph on the same date. FINDINGS: GASTROINTESTINAL TRACT: No significant abnormality. Non-obstructive. No bowel or stomach distention. ORGANS: Normal as visualized. No organomegaly. No abnormal calcifications. BONES/JOINTS: No acute pathology. SOFT TISSUES: No acute pathology. TUBES, LINES AND DEVICES: Enteric tube tip and side-port well below the level of the GE junction. RAD/Abdomen Single View (Portable) IMPRESSION: Enteric tube tip and side-port well below the level of the GE junction. Electronically Signed: To Stringer DO at 22:19 EDT ,
--- NOTE | 2024-06-02 22:00 | RAD_ITS ---
EXAM: XR CHEST, 1 VIEW CLINICAL INDICATION: Status post intubation TECHNIQUE: Frontal view of the chest. COMPARISON: Abdominal radiograph on the same date and chest radiograph, 12/20/2019 FINDINGS: LUNGS AND PLEURAL SPACES: No significant abnormality. No consolidation or edema. No pneumothorax. No effusion. HEART: No significant abnormality. Cardiac silhouette not enlarged. MEDIASTINUM: Central airways and mediastinal contour are unremarkable. BONES/JOINTS: No significant abnormality. No acute fracture. SOFT TISSUES: No significant abnormality. TUBES, LINES AND DEVICES: Enteric tube extends below the GE junction. The endotracheal tube (ETT) is in satisfactory position. RAD/Chest 1 View (Portable) IMPRESSION: Tubes and lines as above. No acute findings in the chest. Electronically Signed: To Stringer DO at 22:18 EDT ,
[2024-06-02] MEDS: Propofol 200 MG/20 ML Vial 100 MG IV BOLUS ×2 (22:09→22:17)
--- NOTE | 2024-06-02 22:15 | CPS ---
abg results handed to dr miner at 22:18
[2024-06-02 22:17] LABS: Allen Test Positive; Base Excess -6 mmol/L (-2 to +2); Bicarbonate 19.5 mmol/L (22-26); Blood Gas Specimen Type ART; Mode AC; O2 Delivery Device Adult Vent; PEEP 5; PO2 507 mmHG (75-100); RR 16; SITE L Radial; SO2 100 % (95-99); Total Carbon Dioxide 21 mmol/L; pCO2 35.5 mmHg (35-45); pH 7.35 (7.35-7.45)
[2024-06-02] MEDS: NORMAL SALINE 0.9% IV ×2 (22:17→22:55)
[2024-06-02] MEDS: LEVETIRACETAM IV (22:17)
[2024-06-02 22:20] LABS: CPK Total, Creatine Kinase 298 U/L (39-308); Triglycerides 69 mg/dL
--- NOTE | 2024-06-02 22:22 | ED.RN ---
Verbal order from Dr. Tay to increase Propofol to max rate of 50mcg/kg/min d/t increased agitation, bucking vent.
[2024-06-02 22:25] LABS: Amphetamine Urine VISTA NEGATIVE (<1000 ng/mL); Barbiturate Urine VISTA NEGATIVE (< 200 ng/mL); Benzodiazepine Urine VISTA NEGATIVE (< 200 ng/mL); Cocaine Urine VISTA NEGATIVE (< 300 ng/mL); Ecstacy Urine VISTA NEGATIVE (< 500 ng/mL); Methadone Urine VISTA NEGATIVE (< 300 ng/mL); PCP Urine VISTA NEGATIVE (< 25 ng/mL); THC Urine VISTA POSITIVE (< 50 ng/mL); Vista UDS pH Range 5
[2024-06-02] MEDS: KETAMINE HCL IV (22:55)
[2024-06-02 22:57] LABS: Bacteria 0 SEEN /hpf (None Seen); Mucous, Urine 0 SEEN /hpf (<or=2+); White Blood Cells 0 SEEN /hpf (0-5)
[2024-06-02 23:01] LABS: Color, Urine Yellow (Yellow); Glucose, Dipstick Normal (Normal); Ketone-Dipstick 50 mg/dl (Negative); Leukocyte Esterase-Dipstick Negative /ul (Negative); Nitrite-Dipstick Negative (Negative); Occult Blood-Urine 50 /ul (Negative); Protein-Dipstick 100 mg/dl (Negative); Specific Gravity, Urine 1.025 (1.002-1.030); Urine Bilirubin Dipstick Negative (Negative); Urine Clarity Sl. Cloudy (Clear); Urine Urobilinogen Normal (Normal)
[2024-06-02] MEDS: fentaNYL drip 100 ML 5 MCG CONT INF (23:11)
[2024-06-02] MEDS: fentaNYL 100 MCG/2 ML Ampul 50 MCG IV ×2 (23:15→23:48)
[2024-06-02 23:20] LABS: Red Blood Cells-Urine 0-5 SEEN /hpf (0-5)
[2024-06-02 23:21] LABS: Hyaline Cast 0-5 SEEN /lpf (0-5); Squamous Epithelial Cells - UA 0-5 SEEN /hpf (0-5)
[2024-06-02] MEDS: lamoTRIgine 25 MG Tablet 300 MG NG (23:39)
[2024-06-02] MEDS: Vecuronium Bromide 10 MG/10 ML Vial 6 MG IV (23:40)
--- NOTE | 2024-06-02 23:45 | ED.RN ---
Verbal order from Dr. Tay to increase Fentanyl drip to 10ml/hr.
[2024-06-03 00:08] LABS: Bedside Glucose 91 mg/dL (74-106)
--- NOTE | 2024-06-03 01:23 | ED.RN ---
2114: STAFF ASSIST CALLED IN CT D/T PATIENT SEIZURE. STAFF MEMBER Saqib JIMENES, GATE MANAGER Santhosh DODD RESPONDED. 2115: I WAS IN PROVIDING D/C INSTRUCTIONS ON ANOTHER PATIENT WHILE HE WAS IN CT. 2117: 2 MG IV ATIVAN WAS GIVEN BY A NURSE IN CT. FOLLOWING ADMINISTRATION PATIENT WAS POSTICTAL FOR A BRIEF PERIOD OF TIME BEFORE HE BECAME COMBATIVE, SCREAMING HELP ME, HELP ME!. STAFF MEMBERS ATTEMPTED TO CONSOLE PATIENT BUT HE BEGAN TO THRASH ON THE SCANNER BED. PATIENT BEGAN TO BANG ARMS, LEGS, AND HEAD ON SURROUNDING SURFACES D/T AGITATION.EXTREMITIES WERE PROTECTED TO PREVENT PATIENT HARM. 2119: PATIENT RIPPED OUT IV IN LEFT AC D/T AGITATION AND CONFUSION. NEW IV PLACED IN RIGHT ARM BY Leandro MENDEZ. 2124: 2 MG IV ATIVAN GIVEN. PATIENT AGITATION CONTINUED. YELLING BECAME LOUDER AND AGITATION BEGAN TO CAUSE DANGER TO PATIENTS SELF AND STAFF MEMBERS. STAFF MEMBERS WERE UNABLE TO CONSOLE PATIENT. 2134: IV VERSED GIVEN TO HELP CALM PATIENT. IT WAS NO SUCCESSFUL.
== END 2024-06-03 | disposition short-term general hospital (02) ==
PROVIDERS: Nurse Practitioner; Emergency Provider Student in an Organized Health Care Education/Training Program; PCP Nurse Practitioner Family; Visit Provider Student in an Organized Health Care Education/Training Program
DX: G40.401 Other generalized epilepsy and epileptic syndromes, not intractable, with status epilepticus (principal); Z87.891 Personal history of nicotine dependence; D72.829 Elevated white blood cell count, unspecified; R51.9 Headache, unspecified; S00.81XA Abrasion of other part of head, initial encounter; I45.10 Unspecified right bundle-branch block; Z79.899 Other long term (current) drug therapy; R11.0 Nausea; R45.1 Restlessness and agitation; X58.XXXA Exposure to other specified factors, initial encounter
CPT/HCPCS: 31500; 31720; 36600; 51702; 70450; 70486; 71045; 72125; 74018; 80048; 80307; 81001; 82550; 82803; 82962; 84478; 84484; 85025; 87070; 87205; 93005; 94002; 96365; 96367; 96375; 96376; 99252; 99285; J7030; J7050; A4216; G0463